=== PATIENT | female | born 2000 | race Caucasian/White ===

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

== ENCOUNTER 2022-01-10 11:36 | Observation (INO) | payer OTHER ==
[~2022-01-10] VITALS: Ht 175.3 cm; Wt 80.0 kg
[2022-01-10 12:11] VITALS: BP 126/88
[2022-01-10 12:30] VITALS: BP 115/83
[2022-01-10] MEDS ORDERED: HYDROCODONE/ACE1 T12 (12:59)
[2022-01-10 13:00] VITALS: BP 124/81
[2022-01-10] MEDS ORDERED: LACTULOSE10 GM/15 M (13:00)
[2022-01-10] MEDS ORDERED: VALIUM2 MG PO (13:01)
[2022-01-10 13:09] LABS: HEMATOCRIT 41.9 % (37.0-47.0); HEMOGLOBIN 13.3 g/dl (12.0-16.0); IMMATURE GRANULOCYTES 0.1 % (0.0-5.0); MEAN CORPUSCULAR HGB 31.3 pG CALC (26.0-32.0); MEAN CORPUSCULAR HGB CONC 31.7 g/dL CAL (32.0-36.0); NEUT# 5.47 thou/uL (2.00-7.15); RED BLOOD COUNT 4.25 mill/uL (4.20-5.60); RED CELL DISTRI WIDTH 14.1 % (11.5-15.5)
[2022-01-10 13:11] LABS: MEAN CELL VOLUME 98.6 fL CALC (80.0-100.0)
[2022-01-10 13:21] LABS: ALBUMIN 4.1 g/dL (3.2-5.0); ALKALINE PHOSPHATASE 124 u/l (38-126); ANION GAP 9 (6-22 (CALC)); BILIRUBIN, TOTAL 0.3 mg/dL (0.0-1.4); BUN 10 mg/dL (8-21); BUN/CREATININE RATIO 30 (12-20 (CALC)); CARBON DIOXIDE 32 mmol/l (22-30); CHLORIDE 102 mmol/l (95-108); CREATININE 0.3 mg/dL (0.5-1.0); GFR > 60 ML/MIN (>=60 (CALC)); GFR FOR AFR.AMER. > 60 ML/MIN (>=60 (CALC)); POTASSIUM 4.4 mmol/l (3.5-5.1); SGOT/AST 34 u/l (14-36); SODIUM 139 mmol/l (137-146); TOTAL PROTEIN 8.1 g/dL (6.3-8.2)
[2022-01-10 13:30] VITALS: BP 122/84
[2022-01-10 13:38] LABS: URINE BILIRUBIN - DIPSTICK NEGATIVE (NEGATIVE); URINE BLOOD DIPSTICK NEGATIVE (NEGATIVE); URINE COLOR YELLOW; URINE GLUCOSE - DIPSTICK NEGATIVE (NEGATIVE); URINE KETONE NEGATIVE (NEGATIVE); URINE LEUK ESTERASE LARGE (NEGATIVE); URINE NITRITE - DIPSTICK NEGATIVE (Negative); URINE PH 8.5 (4.5-8.0); URINE PROTEIN - DIPSTICK TRACE mg/dL (NEG-TRACE); URINE SPECIFIC GRAVITY 1.015; URINE UROBILINOGEN - DIPSTICK 0.2 E.U./dL (0.2)
[2022-01-10 13:42] LABS: URINE BACTERIA MANY hpf
[2022-01-10 14:00] VITALS: BP 124/82
[2022-01-10 20:09] VITALS: BP 119/69
[2022-01-11 04:40] VITALS: BP 126/64
[2022-01-11 18:56] VITALS: BP 116/72
[2022-01-12 04:08] VITALS: BP 99/55
[2022-01-12 04:09] VITALS: BP 95/48
[2022-01-12 07:17] VITALS: BP 110/78
[2022-01-12 14:27] VITALS: BP 124/80
[2022-01-12 18:57] VITALS: BP 126/85
[2022-01-13 03:40] VITALS: BP 101/56
[2022-01-13 05:44] LABS: HEMOGLOBIN 12.2 g/dl (12.0-16.0); MEAN CELL VOLUME 97.7 fL CALC (80.0-100.0); MEAN CORPUSCULAR HGB 31.4 pG CALC (26.0-32.0); MEAN CORPUSCULAR HGB CONC 32.1 g/dL CAL (32.0-36.0); RED BLOOD COUNT 3.89 mill/uL (4.20-5.60); RED CELL DISTRI WIDTH 13.5 % (11.5-15.5)
[2022-01-13 06:01] LABS: ANION GAP 13 (6-22 (CALC)); BUN 5 mg/dL (8-21); BUN/CREATININE RATIO 19 (12-20 (CALC)); CARBON DIOXIDE 22 mmol/l (22-30); CHLORIDE 106 mmol/l (95-108); CREATININE 0.3 mg/dL (0.5-1.0); GFR > 60 ML/MIN (>=60 (CALC)); GFR FOR AFR.AMER. > 60 ML/MIN (>=60 (CALC)); MAGNESIUM 1.5 mg/dL (1.6-2.3); POTASSIUM 4.1 mmol/l (3.5-5.1); SODIUM 137 mmol/l (137-146)
[2022-01-13 07:03] VITALS: BP 108/67
[2022-01-13 15:27] VITALS: BP 121/78
[2022-01-13 18:13] VITALS: BP 127/86
[2022-01-14 04:57] VITALS: BP 100/51
[2022-01-14 06:12] LABS: ANION GAP 12 (6-22 (CALC)); BUN < 2 mg/dL (8-21); CARBON DIOXIDE 23 mmol/l (22-30); CHLORIDE 106 mmol/l (95-108); CREATININE 0.3 mg/dL (0.5-1.0); GFR > 60 ML/MIN (>=60 (CALC)); GFR FOR AFR.AMER. > 60 ML/MIN (>=60 (CALC)); MAGNESIUM 1.6 mg/dL (1.6-2.3); POTASSIUM 3.6 mmol/l (3.5-5.1); SODIUM 138 mmol/l (137-146)
[2022-01-14 07:05] VITALS: BP 125/79
[2022-01-14 15:27] VITALS: BP 128/79
[2022-01-14 20:56] VITALS: BP 129/72
[2022-01-15 05:05] VITALS: BP 106/54
[2022-01-15 05:37] LABS: HEMATOCRIT 39.4 % (37.0-47.0); HEMOGLOBIN 12.9 g/dl (12.0-16.0); MEAN CELL VOLUME 96.1 fL CALC (80.0-100.0); MEAN CORPUSCULAR HGB 31.5 pG CALC (26.0-32.0); MEAN CORPUSCULAR HGB CONC 32.7 g/dL CAL (32.0-36.0); RED BLOOD COUNT 4.1 mill/uL (4.20-5.60); RED CELL DISTRI WIDTH 13.7 % (11.5-15.5)
[2022-01-15 06:02] LABS: ANION GAP 13 (6-22 (CALC)); BUN 3 mg/dL (8-21); BUN/CREATININE RATIO 8 (12-20 (CALC)); CARBON DIOXIDE 22 mmol/l (22-30); CHLORIDE 106 mmol/l (95-108); CREATININE 0.4 mg/dL (0.5-1.0); GFR > 60 ML/MIN (>=60 (CALC)); GFR FOR AFR.AMER. > 60 ML/MIN (>=60 (CALC)); MAGNESIUM 1.6 mg/dL (1.6-2.3); POTASSIUM 3.9 mmol/l (3.5-5.1); SODIUM 137 mmol/l (137-146)
[2022-01-15 08:08] VITALS: BP 123/72
[2022-01-15 11:36] VITALS: BP 114/74
[2022-01-15 15:09] VITALS: BP 113/62
[2022-01-15 19:16] VITALS: BP 113/66
[2022-01-16 04:08] VITALS: BP 102/46
[2022-01-16 05:44] LABS: HEMATOCRIT 40.5 % (37.0-47.0); HEMOGLOBIN 13.3 g/dl (12.0-16.0); MEAN CELL VOLUME 96.7 fL CALC (80.0-100.0); MEAN CORPUSCULAR HGB 31.7 pG CALC (26.0-32.0); MEAN CORPUSCULAR HGB CONC 32.8 g/dL CAL (32.0-36.0); RED BLOOD COUNT 4.19 mill/uL (4.20-5.60); RED CELL DISTRI WIDTH 13.9 % (11.5-15.5)
[2022-01-16 06:05] LABS: ANION GAP 14 (6-22 (CALC)); BUN 6 mg/dL (8-21); BUN/CREATININE RATIO 16 (12-20 (CALC)); CARBON DIOXIDE 23 mmol/l (22-30); CHLORIDE 108 mmol/l (95-108); CREATININE 0.4 mg/dL (0.5-1.0); GFR > 60 ML/MIN (>=60 (CALC)); GFR FOR AFR.AMER. > 60 ML/MIN (>=60 (CALC)); MAGNESIUM 1.7 mg/dL (1.6-2.3); POTASSIUM 3.6 mmol/l (3.5-5.1); SODIUM 141 mmol/l (137-146)
[2022-01-16 07:43] VITALS: BP 132/76
[2022-01-16 11:27] VITALS: BP 118/69
[2022-01-16] MEDS ORDERED: FLEET ENEMA RE (11:48)
== END 2022-01-16 13:00 | disposition home or self-care (01) ==
LOC: ED 11:36 → ED-I 16:20 → ED 17:13 → MS2 17:14
PROVIDERS: Family Medicine; Hospitalist; ADMIT Internal Medicine; ATTEND Internal Medicine
DX: K56.41 Fecal impaction (principal); N39.0 Urinary tract infection, site not specified; L89.899 Pressure ulcer of other site, unspecified stage; G93.1 Anoxic brain damage, not elsewhere classified; F84.0 Autistic disorder; G82.50 Quadriplegia, unspecified; N32.89 Other specified disorders of bladder; M21.372 Foot drop, left foot; M21.371 Foot drop, right foot; T75.1 Unspecified effects of drowning and nonfatal submersion; B96.1 Klebsiella pneumoniae [K. pneumoniae] as the cause of diseases classified elsewhere; Z93.1 Gastrostomy status; Z93.59 Other cystostomy status; Z74.01 Bed confinement status; Z20.822 Contact with and (suspected) exposure to COVID-19
CPT/HCPCS: G0378; J3475; Q9967

== ENCOUNTER 2022-01-24 21:51 | Emergency (ER) | payer OTHER ==
[~2022-01-24] VITALS: Ht 175.3 cm; Wt 88.5 kg
[~2022-01-24 21:51] MED LIST changes: +FLEET ENEMA RE; +HYDROCODONE/ACE1 T12; +LACTULOSE10 GM/15 M; +VALIUM2 MG PO
[2022-01-24] MEDS ORDERED: CITRATE OF MEGNESIA VT (23:46)
[2022-01-24] MEDS ORDERED: MIRALAX17 GM PO (23:46)
[2022-01-24 23:51] VITALS: BP 123/81
== END 2022-01-25 00:29 | disposition home or self-care (01) ==
LOC: ED 21:51
DX: K59.00 Constipation, unspecified (principal); F84.0 Autistic disorder; G93.1 Anoxic brain damage, not elsewhere classified; T75.1 Unspecified effects of drowning and nonfatal submersion; Z93.1 Gastrostomy status; Z74.01 Bed confinement status

== ENCOUNTER 2022-02-11 19:30 | Inpatient (IN) | payer OTHER ==
[2022-02-11] VITALS (12 sets, daily range): BP systolic 102–126; BP diastolic 52–86
[~2022-02-11] VITALS: Ht 175.3 cm; Wt 80.0 kg
[~2022-02-11 19:30] MED LIST changes: -BACLOFEN10 MG PO; +BACLOFEN10 MG VT; +CITRATE OF MEGNESIA VT; +DIAZEPAM5 MG VT; +MIRALAX17 GM PO; -VALIUM2 MG PO
--- NOTE | 2022-02-11 19:30 | NUR ---
RECEIVED APHASIC F FROM HOME VIA EMS WITH REPORTED SUDDEN ONSET FEVER THIS AFTERNOON.PT HX ANOXIC BRAIN INJURY,TOTAL CARE GIVEN BY PARENTS.PT HAS CONTRACTURES OF BOTH WRISTS,STIFF MAN SYNDROME,RETAINED TRAMMELL CATH DRAINS YELLOW URINE QS,SKIN IS WARM TO TOUCH.1 LOOSE CONGESTED GUZZLER BUILDER COUGH WITH TURNING IN BED.FACE IS FLUSHED RED.SOFT PADDED HEEL PROTECTORS BILAT LOWER EXT HEELS SHOW NO SIGNS OF BREAKDOWNSKIN OVER COCCYX IS PINK AND UNBROKEN PT IS ON O2/GUZZLER BUILDER 2L
[2022-02-11 19:45] LABS: URINE BILIRUBIN - DIPSTICK NEGATIVE (NEGATIVE); URINE BLOOD DIPSTICK TRACE-INTACT (NEGATIVE); URINE COLOR YELLOW; URINE GLUCOSE - DIPSTICK NEGATIVE (NEGATIVE); URINE KETONE NEGATIVE (NEGATIVE); URINE LEUK ESTERASE SMALL (NEGATIVE); URINE NITRITE - DIPSTICK NEGATIVE (Negative); URINE PROTEIN - DIPSTICK NEGATIVE (NEG-TRACE); URINE SPECIFIC GRAVITY 1.015; URINE UROBILINOGEN - DIPSTICK 0.2 E.U./dL (0.2)
[2022-02-11 19:54] LABS: URINE BACTERIA MODERATE hpf; URINE SQUAMOUS EPITHELIAL CELL FEW EPI/hpf (0-FEW)
[2022-02-11 20:16] LABS: HEMOGLOBIN 14.1 g/dl (12.0-16.0); IMMATURE GRANULOCYTES 0.2 % (0.0-5.0); MEAN CELL VOLUME 95.7 fL CALC (80.0-100.0); MEAN CORPUSCULAR HGB 30.7 pG CALC (26.0-32.0); NEUT# 11.69 thou/uL (2.00-7.15); RED BLOOD COUNT 4.6 mill/uL (4.20-5.60); RED CELL DISTRI WIDTH 12.9 % (11.5-15.5)
--- NOTE | 2022-02-11 20:25 | NUR ---
PARENTS REPORT THE PT'S ABD LOOKS DISTENDED FROM HER APPEARANCE AT HOME JPT TRANSPORT.PER DAD PT HAS HAD EPISODES OF CONSTIPATION LOOSE BMS.HAS BEEN RECEIVING STOOL SOFTENERS AND LAXATIVES DAILY
[2022-02-11 20:39] LABS: ALBUMIN 4.2 g/dL (3.2-5.0); ALKALINE PHOSPHATASE 139 u/l (38-126); ANION GAP 14 (6-22 (CALC)); BILIRUBIN, TOTAL 0.4 mg/dL (0.0-1.4); BUN 13 mg/dL (8-21); BUN/CREATININE RATIO 47 (12-20 (CALC)); CARBON DIOXIDE 22 mmol/l (22-30); CHLORIDE 102 mmol/l (95-108); CPK 47 u/l (30-165); CREATININE 0.3 mg/dL (0.5-1.0); GFR > 60 ML/MIN (>=60 (CALC)); GFR FOR AFR.AMER. > 60 ML/MIN (>=60 (CALC)); MAGNESIUM 1.5 mg/dL (1.6-2.3); POTASSIUM 4.2 mmol/l (3.5-5.1); SGOT/AST 30 u/l (14-36); SODIUM 134 mmol/l (137-146); TOTAL PROTEIN 8.4 g/dL (6.3-8.2)
--- NOTE | 2022-02-11 22:11 | NUR ---
PT TURNED R SIDE LYING WITH PILLOW PROPS AT BACK AND BUTT NO COUGH OR CONGESTION
--- NOTE | 2022-02-11 22:30 | NUR ---
REPORT RECEIVED FROM MARYBEL ROSS.
--- NOTE | 2022-02-11 22:45 | NUR ---
PHONE REPORT TO NURSE RIKA ON [facility]
--- NOTE | 2022-02-11 22:50 | NUR ---
PT TRANSPORTED TO OR VIA STRETCHER BY [facility] IN STABLE CONDITION
--- NOTE | 2022-02-11 23:00 | NUR ---
PT ARRIVED VIA STRETCHER ACCOMPANIED BY MARYBEL ROWE. PARENT WITH PT AT BEDSIDE. PT WITH ANOXIC BRAIN INJURY, BED BOUND AND NON VERBAL. O2 HIGH FLOW @ 5L. EVEN AND UNLABORED RESPIRATIONS; CLEAR LUNG SOUNDS UPON AUSCULTATION. G-TUBE IS CLEAN AND DRY. SUPRAPUBIC CATHETER DRAINING CLEAR YELLOW URINE. PT HAD EMESIS EPISODE 1X ON THE WAY TO [facility] FLOOR, AND A WATERY BOWEL MOVEMENT. PT SUCTIONED; NEW GOWN AND LINEN PROVIDED. SAFETY PRECAUTIONS IN PLACE.
--- NOTE | 2022-02-11 23:20 | NUR ---
CONTINUOUS PULSE OX ORDERED BY DR. AVERY AT THIS TIME. SAFETY PRECAUTIONS IN PLACE.
--- NOTE | 2022-02-12 00:30 | NUR ---
PT IN BED; O2 SAT @ 93%. NO DISTRESS OR PAIN NOTED. SAFETY PRECAUTIONS IN PLACE.
--- NOTE | 2022-02-12 02:02 | NUR ---
PT O2 SAT @ 89%; O2 HIGH FLOW VIA NASAL CANNULA @ 5L IN PLACED PER DR'S ORDERS. SAFETY PRECAUTIONS IN PLACE.
--- NOTE | 2022-02-12 02:46 | NUR ---
PT O2 SAT @ 87%; DAVID FROM RT NOTIFIED TO REASSES PT. PT NOW ON HIGH FLOW AT 8L. SAFETY PRECAUTIONS IN PLACE.
--- NOTE | 2022-02-12 03:00 | NUR ---
O2 HIGH FLOW @ 5L IN PLACE; O2 SAT @ 95%. SAFETY PRECAUTIONS IN PLACE.
[2022-02-12 05:04] VITALS: BP 107/51
--- NOTE | 2022-02-12 05:10 | NUR ---
PT SLEEPING; NO DISTRESS OR PAIN NOTED. VS OBTAINED AT THIS TIME; O2 SAT @ 99%. 02 NOW @ 3L VIA NASAL CANNULA PER RT TECH. SAFETY PRECAUTIONS IN PLACE.
[2022-02-12 05:18] LABS: HEMATOCRIT 39.7 % (37.0-47.0); HEMOGLOBIN 12.9 g/dl (12.0-16.0); IMMATURE GRANULOCYTES 0.2 % (0.0-5.0); MEAN CELL VOLUME 96.4 fL CALC (80.0-100.0); MEAN CORPUSCULAR HGB 31.3 pG CALC (26.0-32.0); MEAN CORPUSCULAR HGB CONC 32.5 g/dL CAL (32.0-36.0); NEUT# 7.57 thou/uL (2.00-7.15); RED BLOOD COUNT 4.12 mill/uL (4.20-5.60); RED CELL DISTRI WIDTH 12.9 % (11.5-15.5)
[2022-02-12 05:42] LABS: ANION GAP 11 (6-22 (CALC)); BUN 12 mg/dL (8-21); BUN/CREATININE RATIO 51 (12-20 (CALC)); CARBON DIOXIDE 22 mmol/l (22-30); CHLORIDE 105 mmol/l (95-108); CREATININE 0.2 mg/dL (0.5-1.0); GFR > 60 ML/MIN (>=60 (CALC)); GFR FOR AFR.AMER. > 60 ML/MIN (>=60 (CALC)); POTASSIUM 3.8 mmol/l (3.5-5.1); SODIUM 134 mmol/l (137-146)
[2022-02-12 05:43] LABS: MAGNESIUM 2.4 mg/dL (1.6-2.3)
[2022-02-12 06:35] VITALS: BP 97/47
[2022-02-12] MEDS ORDERED: LACTULOSE10 GM/15 M VT (07:14)
--- NOTE | 2022-02-12 07:30 | NUR ---
SHIFT CHANGE REPORT, PT AWAKE IN BED IN SUPINE POSITION, NON-VERBAL, NO VISIBLE SIGN DISCOMFORT, O2 @ 3L HIGH FRANKI IN PLACE VIA NC, IVF OF 0.9 NS INFUSING @ 125ML/HR TO SITE IN RIGHT NECK. TOTAL BEDBATH AND ORAL CARE GIVEN BY STAFF, REPOSITIONED, CALL SEGURA IN REACH AND BED IN LOWEST POSITION.
--- NOTE | 2022-02-12 07:36 | NUR ---
Patient is screened for physical medicine intervention. She is admitted with fecal impaction and fever. All other issues seem to be long standing. We can evaluate for contracture management if medical sees the need.
[2022-02-12 08:54] VITALS: BP 112/68
--- NOTE | 2022-02-12 12:00 | NUR ---
NO CHANGE IN CONDITION, REPOSITIONED.
[2022-02-12 14:00] VITALS: BP 111/63
--- NOTE | 2022-02-12 15:38 | NUR ---
REPOSITIONED FREQUENTLY, ALL NEEDS ANTICIPATED AND ADDRESSED.
[2022-02-12 19:04] VITALS: BP 114/71
--- NOTE | 2022-02-12 19:35 | NUR ---
REPORT RECEIVED FROM María Elena BRENNAN
--- NOTE | 2022-02-12 20:00 | NUR ---
PATIENT ASSESMENT COMPLETED AT THIS TIME. MOTHER AT BEDSIDE, PATIENT ANWARE OF SURROUNDINGS. REGULAR HEART SOUNDS, CURRENTLY ON TELE SR 90'S REGULAR BREATHING, NON LABORED, NON PRODUCTIVE COUGH ON 1 VIA NASAL CANNULA CLEAR LUNG SOUNDS THROUGHOUT. SOFT DISTENDED ABDOMEN WITH ACTIVE BOWEL SOUNDS, LAST BOWEL MOVEMENT 02/12 MOTHER. DANIELLA URINE DRAINING TO GRAVITY, NO OCCLUSIONS, 100 ML EMPTIED. SKIN IS INTACT THROUGHOUT. #20 IN RIGHT JUGULAR PATENT AND FLUSHED. PLAN OF CARE REVIEWED WITH MOTHER. MEDICATIONS REVIEWED WITH MOTHER FREQUENT ROUNDING BY STAFF AND Q2 TURNS.
--- NOTE | 2022-02-12 21:35 | NUR ---
MEDICATIONS ADMINSITERED PER EMAR. SEE EMAR.
--- NOTE | 2022-02-12 23:30 | NUR ---
ANTIBIOTIC HUNG AT THIS TIME
[2022-02-12 23:39] VITALS: BP 92/43
[2022-02-13 03:50] VITALS: BP 114/57
--- NOTE | 2022-02-13 04:15 | NUR ---
PATIENT CLEANED UP AND TURNED AT THIS TIME.
--- NOTE | 2022-02-13 04:30 | NUR ---
ATTEMPTED WEANING PT OFF 1L VIA NC, PT GRADUALL DESATS TO 90% 89% REPLACED CANNULA, PATIENT UP TO 94%
[2022-02-13 06:17] LABS: MEAN CELL VOLUME 97.1 fL CALC (80.0-100.0); MEAN CORPUSCULAR HGB 30.4 pG CALC (26.0-32.0); MEAN CORPUSCULAR HGB CONC 31.3 g/dL CAL (32.0-36.0); RED BLOOD COUNT 5.52 mill/uL (4.20-5.60); RED CELL DISTRI WIDTH 13.1 % (11.5-15.5)
[2022-02-13 06:25] LABS: HEMATOCRIT 53.6 % (37.0-47.0); HEMOGLOBIN 16.8 g/dl (12.0-16.0)
[2022-02-13 06:33] LABS: ANION GAP 15 (6-22 (CALC)); BUN 9 mg/dL (8-21); BUN/CREATININE RATIO 35 (12-20 (CALC)); CARBON DIOXIDE 22 mmol/l (22-30); CHLORIDE 107 mmol/l (95-108); CREATININE 0.3 mg/dL (0.5-1.0); GFR > 60 ML/MIN (>=60 (CALC)); GFR FOR AFR.AMER. > 60 ML/MIN (>=60 (CALC)); MAGNESIUM 1.9 mg/dL (1.6-2.3); POTASSIUM 4.2 mmol/l (3.5-5.1); SODIUM 139 mmol/l (137-146)
[2022-02-13 07:11] VITALS: BP 112/60
--- NOTE | 2022-02-13 08:00 | NUR ---
SHIFT CHANGE REPORT, PT RESTING IN SUPINE POSITION AND SLEEPING, NON-VERBAL, RIGID AND CONTRACTED O2@ 1L VIA NC HIGH FRANKI TUBING IN PLACE, CONTINUOUS PULSE OXIMETRY IN PLACE, REPOSITIONED IN BED, CALL SEGURA IN REACH AND BED LOCKED IN LOWEST POSITION.
--- NOTE | 2022-02-13 12:00 | NUR ---
RECEIVE REPORT FROM BASIA NO. PATIENT STABLE RESTING IN BED.CHANGE OF POSITION EVERY TWO HOURS IS DONE TO PREVENT ULCERS AND SKIN CARE. IV DRESSING CHANGED WITH STERILE CARE.
[2022-02-13 14:10] VITALS: BP 121/77
--- NOTE | 2022-02-13 16:17 | NUR ---
PRELIMINARY BLOOD CULTURE RESULTS CALLED TO . / VIALS GROWING GRAM (+) COCCI. NEW ORDER FOR VANCOMYCIN. FINAL RESULTS TO FOLLOW ON 02/14/22
--- NOTE | 2022-02-13 16:59 | NUR ---
S: TOM SHERMAN is a 21 F who presents with gram (+) cocci in 4/4 blood cultures. She has a history of possible aspiration pneumonia . All medications in patient's chart were reviewed. O: VS: BP <>, P<>, RR<>,T<> W <kg>, HT<cm>, Scr=<>,CrCl= <ml/min> A: Blood culture <is pending/show> which is sensitive to <>. Urine culture <is pending/show> which is sensitive to <>. P: Patient is on unasyn. Vancomycin ordered for pharmacy to dose. Start Vancomycin 1 gram IV Q8H. Vancomycin trough is drawn before the 4th dose on 02/14 at 0730. Vancomycin goal trough is between <15-20 mcg/ml>. Pharmacy will follow and or advise on antibiotics use as needed.
[2022-02-13 19:12] VITALS: BP 140/84
--- NOTE | 2022-02-13 19:55 | NUR ---
PT'S MOM WAS IN TO SEE HER, STATED THAT THE PT APPEARS COMFORTABLE AND THAT SHE IS "SNORING AWAY." I SPOKE WITH HER ABOUT HER FEEDINGS AND CONFIRMED THE ORDERS/INSTRUCTIONS PROVIDED BY DIETARY, SHE CONFIRMED FEED AT BEDSIDE AND 5 CANS PER DAY STARTING WITH THE 2000 FEED. DISCUSSED POSITIONING WITH PILLOWS AND NECK POSITIONING PREFERRED.
--- NOTE | 2022-02-13 22:20 | NUR ---
PT TEMPT 101.9 MEDICATED W/MOTRIN AND COOL COMPRESSESS APPLIED, ROOM TURNED TO COOL AND COVERS WERE REMOVED. HR SUSTAINED 130, O2 SAT 99% ON 7L NC. WILL CONTINUE TO MONITOR FOR RESPONSE.
--- NOTE | 2022-02-13 23:50 | NUR ---
PT TEMP 99.9 AT THIS TIME, COOL CLOTHS REMAIN AND ROOM COOLED. WILL CONTINUE TO MONITOR FOR FOR POSSIBLE NEED OF TYLENOL IF FEVER DOES NOT CONTINUE TO LOWER.
--- NOTE | 2022-02-14 00:33 | NUR ---
PT TEMP IS DOWN TO 99.1 AND HR IS RESPONDING AT 116. WILL CONTINUE TO MONITOR
[2022-02-14 05:15] VITALS: BP 92/44
--- NOTE | 2022-02-14 05:30 | NUR ---
PT CLEANED OF INCONTINENT PASTY JUAREZ STOOL. SHE WAS REPOSITIONED W/PILLOWS FOR OFF-LOADING. HEEL BOOTS ARE IN PLACE. PT FEED ADMINISTERED 1 CAN ORDERS PROVIDE. NO RESIDUAL, PLACEMENT COMFIRMED. HOB @45 DEGREES. PT AFEBRILE AND HR IS DOWN TO 89. NO S/O DISTRESS.
[2022-02-14 06:58] VITALS: BP 99/60
--- NOTE | 2022-02-14 07:00 | NUR ---
RECEIVE REPORT FROM BENNY NO.
[2022-02-14 08:00] VITALS: BP 99/60
--- NOTE | 2022-02-14 08:00 | NUR ---
PATIENT STABLE AT THIS TIME. DIET DONE ACCORDING PLAN. PATIENT TOLERATED WELL. CHANGE POSITION EVERY TWO HOURS DONE.
[2022-02-14 08:27] LABS: MEAN CELL VOLUME 97.9 fL CALC (80.0-100.0); MEAN CORPUSCULAR HGB 31.5 pG CALC (26.0-32.0); MEAN CORPUSCULAR HGB CONC 32.2 g/dL CAL (32.0-36.0); RED BLOOD COUNT 3.9 mill/uL (4.20-5.60); RED CELL DISTRI WIDTH 13.2 % (11.5-15.5)
[2022-02-14 08:37] LABS: HEMATOCRIT 38.2 % (37.0-47.0); HEMOGLOBIN 12.3 g/dl (12.0-16.0)
[2022-02-14 08:42] LABS: ANION GAP 11 (6-22 (CALC)); BUN 8 mg/dL (8-21); BUN/CREATININE RATIO 30 (12-20 (CALC)); CARBON DIOXIDE 23 mmol/l (22-30); CHLORIDE 109 mmol/l (95-108); CREATININE 0.3 mg/dL (0.5-1.0); GFR > 60 ML/MIN (>=60 (CALC)); GFR FOR AFR.AMER. > 60 ML/MIN (>=60 (CALC)); MAGNESIUM 1.8 mg/dL (1.6-2.3); POTASSIUM 4.4 mmol/l (3.5-5.1); SODIUM 138 mmol/l (137-146)
--- NOTE | 2022-02-14 09:24 | NUR ---
CALLED [facility] SPOKE TO DONAVAN REGARDING PLACEMENT OF AIR MATTRESS. WAS GIVEN CONFIRMATION NUMBER [id number].
[2022-02-14 10:38] VITALS: BP 120/71
--- NOTE | 2022-02-14 12:58 | NUR ---
PATIENT STABLE AT THIS TIME. RESTING IN BED.
[2022-02-14 15:43] VITALS: BP 133/82
[2022-02-14 19:22] VITALS: BP 143/96
--- NOTE | 2022-02-14 19:45 | NUR ---
PT'S FATHER AT BEDSIDE; FATHER UPSET ABOUT PT'S NOT GETTING PROPER CARE. FATHER REQUESTED TO TALK WITH BALANCE CLERK; NURSE BALANCE CLERK INFORMED. SAFETY PRECAUTIONS IN PLACE.
--- NOTE | 2022-02-14 20:30 | NUR ---
BED BATH GIVEN AT THIS TIME BY AIDES. PT ASSESMENT COMPLETED AT THIS TIME. PT BEDBOUND, NON VERBAL. REGULAR HEART SOUNDS. EVEN AND UNLABORED RESPIRATIONS; CLEAR LUNG SOUNDS. O2 @ 4L VIA NASAL CANNULA IN PLACE. CURRENTLY ON CONTINUOUS PULSE OXIMETER MONITORING. SOFT DISTENDED ABDOMEN; ACTIVE BOWEL SOUNDS. G-TUBE IN PLACE WITH DRESSING CDI. SUPRAPUBIC CATHETER; DANIELLA URINE DRAINING TO GRAVITY. IV SITE HEALTHY AND PATENT. BEDSORE ON RIGHT HEEL NOTICED; AQUACELL FOAM PLACED. SAFETY PRECAUTIONS IN PLACE.
--- NOTE | 2022-02-14 21:10 | NUR ---
PT FED AT THIS TIME; PT TOLERATED WELL. WOUND ON LEFT HALLUX CLEANED AND BANDAGE APPLIED. O2 SAT 95%. SAFETY PRECAUTIONS IN PLACE.
--- NOTE | 2022-02-14 22:30 | NUR ---
PATIENT WEARING 4L/NASAL CANNULA WITH SPO2 94%. BREATH SOUNDS SCATTERED RHONCHI. YANKEUR SUCTIONED WITH LOOSE COUGH THAT CLEARED AIRWAY.
--- NOTE | 2022-02-15 01:16 | NUR ---
NEW BAG OF IV FLUIDS HANGING. PT REPOSITIONED ORDERED. SAFETY PRECAUTIONS IN PLACE.
--- NOTE | 2022-02-15 04:00 | NUR ---
PT IN BED WITH EYES CLOSED. PT'S LIPS DRY; ADMINISTERED MOISTURE CREAM ON LIPS. FREQUENT ROUNDING BY STAFF AND Q2H TURNS. O2 SAT 94%. SAFETY PRECAUTIONS IN PLACE.
[2022-02-15 04:01] VITALS: BP 128/77
[2022-02-15 05:19] LABS: HEMOGLOBIN 10.7 g/dl (12.0-16.0); MEAN CELL VOLUME 96.7 fL CALC (80.0-100.0); MEAN CORPUSCULAR HGB 32.1 pG CALC (26.0-32.0); MEAN CORPUSCULAR HGB CONC 33.2 g/dL CAL (32.0-36.0); RED BLOOD COUNT 3.33 mill/uL (4.20-5.60); RED CELL DISTRI WIDTH 12.9 % (11.5-15.5)
[2022-02-15 05:25] LABS: HEMATOCRIT 32.2 % (37.0-47.0)
[2022-02-15 05:40] LABS: ANION GAP 7 (6-22 (CALC)); BUN 6 mg/dL (8-21); BUN/CREATININE RATIO 23 (12-20 (CALC)); CARBON DIOXIDE 27 mmol/l (22-30); CHLORIDE 108 mmol/l (95-108); CREATININE 0.3 mg/dL (0.5-1.0); GFR > 60 ML/MIN (>=60 (CALC)); GFR FOR AFR.AMER. > 60 ML/MIN (>=60 (CALC)); MAGNESIUM 1.8 mg/dL (1.6-2.3); POTASSIUM 4.1 mmol/l (3.5-5.1); SODIUM 137 mmol/l (137-146)
[2022-02-15 07:00] VITALS: BP 122/76
[2022-02-15 13:57] VITALS: BP 118/76
[2022-02-15 19:14] VITALS: BP 122/83
--- NOTE | 2022-02-15 21:02 | NUR ---
PT ASSESSMENT COMPLETED. PT WAS GIVEN LAST OF HER FEED FOR TONIGHT. ISOSOURCE 1.5CAL GIVEN THROUGH PEG TUBE WITH 450ML WATER FLUSH. PT TOLERATED FEED WELL, NO VOMITING OR COUGH. PT IS RESTING COMFORTABLY IN BED WITH TV ON. PT WAS REPOSITIONED AT 2100 INSTEAD OF 2030 TO ALLOW HER FOOD TO DIGEST AND TO AVOID MAKING THE PT THROW UP.
--- NOTE | 2022-02-15 21:59 | NUR ---
PT IS RESTING COMFORTABLY IN BED WITH TV ON. PT WAS TURNED AND CHANGED POSITION. NEXT TURN WILL BE AT 00:00.
--- NOTE | 2022-02-16 | NUR ---
PT IS AWAKE WITH TV ON. PT WAS TURNED AND REPOSITION. BED IS IN LOWEST POSITION. WILL CONTINUE HOURLY ROUNDING.
--- NOTE | 2022-02-16 02:00 | NUR ---
PT WAS REPOSITIONED AND TURNED. PT IS SLEEPING IN BED. BED IS LOWEST POSITION AND CALL LIGHT IS WITHIN REACH. WILL CONTINUE HOURLY ROUNDING.
--- NOTE | 2022-02-16 04:00 | NUR ---
PT IS RESTING COMFORTABLY. PT HAD BM AND WAS CLEANED AND CHANGED.
[2022-02-16 04:33] VITALS: BP 101/48
--- NOTE | 2022-02-16 05:00 | NUR ---
PT WAS REPOSITIONED AND IS NOW SLEEPING. WILL CONTINUE TO DO HOURLY ROUNDS.
[2022-02-16 05:46] LABS: HEMATOCRIT 31.8 % (37.0-47.0); HEMOGLOBIN 10.9 g/dl (12.0-16.0); MEAN CELL VOLUME 94.4 fL CALC (80.0-100.0); MEAN CORPUSCULAR HGB 32.3 pG CALC (26.0-32.0); MEAN CORPUSCULAR HGB CONC 34.3 g/dL CAL (32.0-36.0); RED BLOOD COUNT 3.37 mill/uL (4.20-5.60); RED CELL DISTRI WIDTH 12.9 % (11.5-15.5)
--- NOTE | 2022-02-16 05:50 | NUR ---
RECIEVED CALL FROM MONITORS THAT PT HR IS IN THE 180'S. WENT INTO ROOM TO ASSESS PT. PT IS SLEEPING WITH RAPID BREATHING BUT DOES NOT APPEAR TO BE IN DISTRESS.
[2022-02-16 06:04] LABS: ANION GAP 11 (6-22 (CALC)); BUN 5 mg/dL (8-21); BUN/CREATININE RATIO 19 (12-20 (CALC)); CARBON DIOXIDE 24 mmol/l (22-30); CHLORIDE 108 mmol/l (95-108); CREATININE 0.3 mg/dL (0.5-1.0); GFR > 60 ML/MIN (>=60 (CALC)); GFR FOR AFR.AMER. > 60 ML/MIN (>=60 (CALC)); MAGNESIUM 1.7 mg/dL (1.6-2.3); POTASSIUM 3.7 mmol/l (3.5-5.1); SODIUM 139 mmol/l (137-146)
[2022-02-16 07:19] VITALS: BP 138/84
--- NOTE | 2022-02-16 08:00 | NUR ---
GOT REPORT FROM HAND BINDERY ASSEMBLY WORKER NURSE. PATIENT ASSESSED, PATIENT IS SLEEPING, NO SXS OF DISTRESS. PATIENT HAD DARK BROWN/BLACK FLUID IN G TUBE. SHOWED SUTURE WINDER HAND, SHE ADVISED ME TO HOLD FEEDINGS FOR THE TIME BEING AND GET STAT CT. PATIENT FATHER INFORMED.
--- NOTE | 2022-02-16 09:04 | NUR ---
Patient is being cared for well by nursing. Skilled intervention is not indicated but we continue to check on her and assist with ROM and positioning. She is being prepped for procedure this AM
--- NOTE | 2022-02-16 12:00 | NUR ---
PAITENT IS AWAKE, DID BED BATH. NO sxs of DISTRESS. FATHER AT BEDSIDE. ADVISED TO CALL IF NEEDING ANYTHING.
--- NOTE | 2022-02-16 12:15 | NUR ---
PERFORMED WOUND CARE ON PATIENT'S RIGHT HEEL AND L GREAT TOE PER MD ORDERS. PATIENT TOLERATED WELL.
[2022-02-16 14:48] VITALS: BP 140/94
--- NOTE | 2022-02-16 16:45 | NUR ---
WENT INTO PATIENTS ROOM TO GIVE PATIENT MEDICATION, TURN PATIENT, AND GIVE TUBE FEED. PATIENT'S FATHER WAS NOT HAPPY THAT WE CAME IN AT 1645 WHEN ACCORDING TO PATIENT'S FATHER TURNING SHOULD HAVE BEEN 15 MINUTES SOONER. PATIENT'S FATHER BEGAN TO YELL AT ME AND REQUEST NURSING TIMING INSPECTOR. HE LEFT THE ROOM AND WENT TO NURSES STATION AND BEGAN YELLING AND VERBALLY ABUSING THE NURSING TIMING INSPECTOR AND OTHER STAFF THEN BEGAN TO THREATEN THE STAFF AND SECURITY WAS CALLED TO HELP. [facility] CAME AND ESCORTED THE PATIENT'S FATHER OUT OF THE HOSPITAL.
--- NOTE | 2022-02-16 19:00 | NUR ---
PT IS RESTING COMFORTABLY IN BED WITH TV ON. TRAMMELL BAG CHANGED DUE TO LEAKAGE.
[2022-02-16 19:07] VITALS: BP 146/95
--- NOTE | 2022-02-16 19:48 | NUR ---
PT ASSESSMENT COMPLETED AT THIS TIME. PATIENT WAS GIVEN HER FEED AND TOLERATED WELL. PT BELLY STILL DISTENDED. PT WAS TURNED AT THIS TIME AND PERIPAD WAS CHANGED. WILL CONTINUE HOURLY ROUNDS.
--- NOTE | 2022-02-16 21:00 | NUR ---
PT IS RESTING IN BED. PT WAS GIVEN HER MEDICATIONS AND TOLERATED WELL. WILL CONTIUE HOURLY ROUNDING.
--- NOTE | 2022-02-16 21:20 | NUR ---
RECEIVED A CALL FRO WANTING TO SPEAK TO THE NURSE WHO IS TAKING CARE OF THE PATIENT. DR. BUSH WANTED TO INFORM ME OF CHANGES. STATED THAT HE WANTED TO BEGIN WEANING PATIENT OFF OF O2. VERIFIED INSTRUCTIONS AND VERBALIZED UNDERSTANDING. PT O2 WAS LOWERED TO 2L NC. PT IS TOLERATING WELL AND O2 IS SUSTAINING AT 96%. DR'S INSTRUCTIONS WERE TO INCREASE IF O2 DROPS BELOW 94%.
--- NOTE | 2022-02-16 22:30 | NUR ---
PT IS RESTING IN BED. PT WAS TURNED AND REPOSITIONED. WILL CONTINUE HOURLY ROUNDING.
[2022-02-16 23:30] VITALS: BP 127/62
[2022-02-17] VITALS: BP 127/62
--- NOTE | 2022-02-17 00:30 | NUR ---
PT IS SLEEPING IN BED. PT HAD A LARGE BM. PT WAS GIVEN A BATH AND LINENS CHANGED. PT WAS TURNED AND REPOSITIONED. WILL CONTINUE HOURLY ROUNDING.
--- NOTE | 2022-02-17 03:28 | NUR ---
RECEIVED A CALL FROM IZZY FROM [facility] THAT PATIENT WILL BE GOING TO [facility]. TRANSPORT ARRIVED ABD REPORT WAS GIVEN AT BEDSIDE. PT'S THINGS WERE PACKED AND GIVEN TO TRANSPORT. PT LEFT FACILITY AT 03:38AM ON 02/17/22. CALLED [facility] AND SPOKE TO RECEIVING NURSE FIGUEROA. REPORT WAS GIVEN OVER THE PHONE AND INFORMED NURSE HENRY THAT WILL BE PHYSICIAN RECEIVING PHYSICIAN. NURSE FIGUEROA VERBALIZED UNDERSTANDING. DISCHARGE DISPOSITION FAXED TO REGISTRATION.
== END 2022-02-17 03:28 | DRG 871 ==
LOC: ED 19:30 → ED-I 19:44 → ED 21:58 → MS2 21:59
PROVIDERS: Family Medicine; ADMIT Internal Medicine; ATTEND Hospitalist
DX: A41.2 Sepsis due to unspecified staphylococcus (principal); J69.0 Pneumonitis due to inhalation of food and vomit; G82.50 Quadriplegia, unspecified; J96.01 Acute respiratory failure with hypoxia; G93.1 Anoxic brain damage, not elsewhere classified; F84.0 Autistic disorder; L89.610 Pressure ulcer of right heel, unstageable; L97.529 Non-pressure chronic ulcer of other part of left foot with unspecified severity; K56.41 Fecal impaction; T75.1 Unspecified effects of drowning and nonfatal submersion; Z74.01 Bed confinement status; Z93.1 Gastrostomy status; Z22.321 Carrier or suspected carrier of Methicillin susceptible Staphylococcus aureus; Z93.50 Unspecified cystostomy status; Z20.822 Contact with and (suspected) exposure to COVID-19
CPT/HCPCS: J1650; Q3014; Q9967; S0164

== ENCOUNTER 2022-02-22 16:30 | Inpatient (IN) | payer OTHER ==
[~2022-02-22] VITALS: Ht 175.3 cm; Wt 97.7 kg
[~2022-02-22 16:30] MED LIST changes: +LACTULOSE10 GM/15 M VT
[2022-02-22 19:51] VITALS: BP 146/83
[2022-02-23 03:35] VITALS: BP 125/78
[2022-02-23 05:06] LABS: BUN 9 mg/dL (8-21); BUN/CREATININE RATIO 8 (12-20 (CALC)); CARBON DIOXIDE 25 mmol/l (22-30); CHLORIDE 112 mmol/l (95-108); CREATININE 1.1 mg/dL (0.5-1.0); GFR FOR AFR.AMER. > 60 ML/MIN (>=60 (CALC)); GFR OTHER RACES > 60 ML/MIN (>=60 (CALC)); MAGNESIUM 1.9 mg/dL (1.6-2.3); POTASSIUM 3.6 mmol/l (3.5-5.1)
[2022-02-23 05:10] LABS: HEMATOCRIT 36.8 % (37.0-47.0); HEMOGLOBIN 11.6 g/dl (12.0-16.0); MEAN CELL VOLUME 99.7 fL CALC (80.0-100.0); MEAN CORPUSCULAR HGB 31.4 pG CALC (26.0-32.0); MEAN CORPUSCULAR HGB CONC 31.5 g/dL CAL (32.0-36.0); RED BLOOD COUNT 3.69 mill/uL (4.20-5.60); RED CELL DISTRI WIDTH 13.2 % (11.5-15.5)
[2022-02-23 05:17] LABS: ANION GAP 13 (6-22 (CALC)); SODIUM 146 mmol/l (137-146)
[2022-02-23 07:04] VITALS: BP 134/71
[2022-02-23 08:00] VITALS: BP 134/71
[2022-02-23 14:05] VITALS: BP 122/75
[2022-02-23 16:00] VITALS: BP 122/75
[2022-02-23 19:24] VITALS: BP 153/72
[2022-02-24 04:36] VITALS: BP 134/81
[2022-02-24 05:12] LABS: HEMOGLOBIN 10.8 g/dl (12.0-16.0); MEAN CELL VOLUME 99.4 fL CALC (80.0-100.0); MEAN CORPUSCULAR HGB 31.6 pG CALC (26.0-32.0); MEAN CORPUSCULAR HGB CONC 31.8 g/dL CAL (32.0-36.0); RED BLOOD COUNT 3.42 mill/uL (4.20-5.60); RED CELL DISTRI WIDTH 13.4 % (11.5-15.5)
[2022-02-24 05:29] LABS: ALKALINE PHOSPHATASE 78 u/l (38-126); ANION GAP 11 (6-22 (CALC)); BILIRUBIN, TOTAL 0.3 mg/dL (0.0-1.4); BUN 8 mg/dL (8-21); BUN/CREATININE RATIO 7 (12-20 (CALC)); CARBON DIOXIDE 26 mmol/l (22-30); CHLORIDE 113 mmol/l (95-108); CREATININE 1.1 mg/dL (0.5-1.0); GFR FOR AFR.AMER. > 60 ML/MIN (>=60 (CALC)); GFR OTHER RACES > 60 ML/MIN (>=60 (CALC)); MAGNESIUM 1.9 mg/dL (1.6-2.3); POTASSIUM 3.3 mmol/l (3.5-5.1); SGOT/AST 16 u/l (14-36); SODIUM 147 mmol/l (137-146)
[2022-02-24 05:31] LABS: ALBUMIN 2.8 g/dL (3.2-5.0); TOTAL PROTEIN 6.7 g/dL (6.3-8.2)
[2022-02-24 06:55] VITALS: BP 132/79
[2022-02-24 14:37] VITALS: BP 130/81
[2022-02-24 19:17] VITALS: BP 112/49
[2022-02-25 03:43] LABS: URINE BILIRUBIN - DIPSTICK NEGATIVE (NEGATIVE); URINE BLOOD DIPSTICK TRACE-INTACT (NEGATIVE); URINE COLOR YELLOW; URINE GLUCOSE - DIPSTICK NEGATIVE (NEGATIVE); URINE KETONE NEGATIVE (NEGATIVE); URINE LEUK ESTERASE TRACE (NEGATIVE); URINE PROTEIN - DIPSTICK NEGATIVE (NEG-TRACE); URINE UROBILINOGEN - DIPSTICK 0.2 E.U./dL (0.2)
[2022-02-25 03:46] LABS: URINE NITRITE - DIPSTICK NEGATIVE (Negative)
[2022-02-25 04:21] VITALS: BP 118/55
[2022-02-25 05:42] LABS: HEMATOCRIT 31.9 % (37.0-47.0); HEMOGLOBIN 10.2 g/dl (12.0-16.0); IMMATURE GRANULOCYTES 0.1 % (0.0-5.0); MEAN CELL VOLUME 99.1 fL CALC (80.0-100.0); MEAN CORPUSCULAR HGB 31.7 pG CALC (26.0-32.0); NEUT# 11.72 thou/uL (2.00-7.15); RED BLOOD COUNT 3.22 mill/uL (4.20-5.60); RED CELL DISTRI WIDTH 13.3 % (11.5-15.5)
[2022-02-25 06:01] LABS: ALBUMIN 2.7 g/dL (3.2-5.0); ALKALINE PHOSPHATASE 69 u/l (38-126); ANION GAP 12 (6-22 (CALC)); BILIRUBIN, TOTAL 0.2 mg/dL (0.0-1.4); BUN 10 mg/dL (8-21); BUN/CREATININE RATIO 9 (12-20 (CALC)); CARBON DIOXIDE 27 mmol/l (22-30); CHLORIDE 110 mmol/l (95-108); CREATININE 1.1 mg/dL (0.5-1.0); GFR FOR AFR.AMER. > 60 ML/MIN (>=60 (CALC)); GFR OTHER RACES > 60 ML/MIN (>=60 (CALC)); POTASSIUM 3.2 mmol/l (3.5-5.1); SGOT/AST 18 u/l (14-36); SODIUM 146 mmol/l (137-146); TOTAL PROTEIN 6.5 g/dL (6.3-8.2)
[2022-02-25 06:48] VITALS: BP 131/67
[2022-02-25 15:34] VITALS: BP 145/88
[2022-02-25 19:06] VITALS: BP 119/53
[2022-02-26] VITALS (7 sets, daily range): BP systolic 122–143; BP diastolic 76–85
[2022-02-26 05:36] LABS: HEMATOCRIT 29.6 % (37.0-47.0); HEMOGLOBIN 9.3 g/dl (12.0-16.0); MEAN CORPUSCULAR HGB 31.4 pG CALC (26.0-32.0); MEAN CORPUSCULAR HGB CONC 31.4 g/dL CAL (32.0-36.0); NEUT# 9.15 thou/uL (2.00-7.15); RED BLOOD COUNT 2.96 mill/uL (4.20-5.60); RED CELL DISTRI WIDTH 13.5 % (11.5-15.5)
[2022-02-26 05:58] LABS: ALBUMIN 2.5 g/dL (3.2-5.0); ALKALINE PHOSPHATASE 58 u/l (38-126); ANION GAP 11 (6-22 (CALC)); BILIRUBIN, TOTAL 0.2 mg/dL (0.0-1.4); BUN 11 mg/dL (8-21); BUN/CREATININE RATIO 11 (12-20 (CALC)); CARBON DIOXIDE 27 mmol/l (22-30); CHLORIDE 111 mmol/l (95-108); GFR FOR AFR.AMER. > 60 ML/MIN (>=60 (CALC)); GFR OTHER RACES > 60 ML/MIN (>=60 (CALC)); MAGNESIUM 2.1 mg/dL (1.6-2.3); POTASSIUM 3.6 mmol/l (3.5-5.1); SGOT/AST 17 u/l (14-36); SODIUM 146 mmol/l (137-146); TOTAL PROTEIN 6.2 g/dL (6.3-8.2)
[2022-02-27 04:17] VITALS: BP 133/89
[2022-02-27 05:17] LABS: HEMATOCRIT 30.2 % (37.0-47.0); HEMOGLOBIN 9.3 g/dl (12.0-16.0); MEAN CELL VOLUME 100.3 fL CALC (80.0-100.0); MEAN CORPUSCULAR HGB 30.9 pG CALC (26.0-32.0); MEAN CORPUSCULAR HGB CONC 30.8 g/dL CAL (32.0-36.0); RED BLOOD COUNT 3.01 mill/uL (4.20-5.60); RED CELL DISTRI WIDTH 13.2 % (11.5-15.5)
[2022-02-27 05:36] LABS: ANION GAP 12 (6-22 (CALC)); BUN 11 mg/dL (8-21); BUN/CREATININE RATIO 12 (12-20 (CALC)); CARBON DIOXIDE 26 mmol/l (22-30); CHLORIDE 109 mmol/l (95-108); CREATININE 0.9 mg/dL (0.5-1.0); GFR FOR AFR.AMER. > 60 ML/MIN (>=60 (CALC)); GFR OTHER RACES > 60 ML/MIN (>=60 (CALC)); POTASSIUM 3.5 mmol/l (3.5-5.1); SODIUM 144 mmol/l (137-146)
[2022-02-27 06:59] VITALS: BP 119/78
[2022-02-27] MEDS ORDERED: CEFEPIME2 GM IV (11:50)
[2022-02-27] MEDS ORDERED: VANCOMYCIN HYDRO1 GM IV (11:50)
[2022-02-27] MEDS ORDERED: CIPROFLOXACN500 MG VT (13:33)
[2022-02-27 14:55] VITALS: BP 128/79
[2022-02-27 19:00] VITALS: BP 151/84
[2022-02-28 04:03] VITALS: BP 125/86
[2022-02-28 06:58] VITALS: BP 131/84
[2022-02-28 08:00] VITALS: BP 131/84
[2022-02-28 16:34] VITALS: BP 131/84
[2022-03-01 04:27] VITALS: BP 114/73
[2022-03-01 06:43] VITALS: BP 133/81
[2022-03-01 08:00] VITALS: BP 133/81
[2022-03-01 11:59] LABS: HEMATOCRIT 33.7 % (37.0-47.0); HEMOGLOBIN 10.5 g/dl (12.0-16.0); IMMATURE GRANULOCYTES 0.1 % (0.0-5.0); MEAN CELL VOLUME 97.4 fL CALC (80.0-100.0); MEAN CORPUSCULAR HGB 30.3 pG CALC (26.0-32.0); MEAN CORPUSCULAR HGB CONC 31.2 g/dL CAL (32.0-36.0); NEUT# 6.97 thou/uL (2.00-7.15); RED BLOOD COUNT 3.46 mill/uL (4.20-5.60)
[2022-03-01 14:07] VITALS: BP 127/79
[2022-03-01 16:19] VITALS: BP 127/79
[2022-03-01 19:24] VITALS: BP 127/85
[2022-03-02 04:09] VITALS: BP 147/52
[2022-03-02 05:34] LABS: HEMATOCRIT 29.4 % (37.0-47.0); HEMOGLOBIN 9.4 g/dl (12.0-16.0); MEAN CELL VOLUME 98.3 fL CALC (80.0-100.0); MEAN CORPUSCULAR HGB 31.4 pG CALC (26.0-32.0); RED BLOOD COUNT 2.99 mill/uL (4.20-5.60); RED CELL DISTRI WIDTH 13.3 % (11.5-15.5)
[2022-03-02 05:42] LABS: ANION GAP 12 (6-22 (CALC)); BUN 10 mg/dL (8-21); BUN/CREATININE RATIO 12 (12-20 (CALC)); CARBON DIOXIDE 27 mmol/l (22-30); CHLORIDE 106 mmol/l (95-108); CREATININE 0.9 mg/dL (0.5-1.0); GFR FOR AFR.AMER. > 60 ML/MIN (>=60 (CALC)); GFR OTHER RACES > 60 ML/MIN (>=60 (CALC)); MAGNESIUM 1.8 mg/dL (1.6-2.3); POTASSIUM 3.6 mmol/l (3.5-5.1); SODIUM 142 mmol/l (137-146)
[2022-03-02 07:01] VITALS: BP 118/69
[2022-03-02 08:00] VITALS: BP 118/69
[2022-03-02 16:00] VITALS: BP 120/62
[2022-03-02 18:59] VITALS: BP 151/80
[2022-03-03] VITALS (7 sets, daily range): BP systolic 116–141; BP diastolic 61–92
[2022-03-03 05:15] LABS: HEMOGLOBIN 9.1 g/dl (12.0-16.0); MEAN CELL VOLUME 98.6 fL CALC (80.0-100.0); MEAN CORPUSCULAR HGB CONC 31.4 g/dL CAL (32.0-36.0); RED BLOOD COUNT 2.94 mill/uL (4.20-5.60); RED CELL DISTRI WIDTH 13.3 % (11.5-15.5)
[2022-03-03 05:17] LABS: ANION GAP 8 (6-22 (CALC)); BUN 9 mg/dL (8-21); BUN/CREATININE RATIO 14 (12-20 (CALC)); CARBON DIOXIDE 23 mmol/l (22-30); CHLORIDE 110 mmol/l (95-108); CREATININE 0.6 mg/dL (0.5-1.0); GFR FOR AFR.AMER. > 60 ML/MIN (>=60 (CALC)); GFR OTHER RACES > 60 ML/MIN (>=60 (CALC)); MAGNESIUM 1.5 mg/dL (1.6-2.3); POTASSIUM 3.1 mmol/l (3.5-5.1); SODIUM 139 mmol/l (137-146)
[2022-03-04 03:58] VITALS: BP 113/78
[2022-03-04 05:28] LABS: HEMATOCRIT 31.5 % (37.0-47.0); MEAN CELL VOLUME 97.5 fL CALC (80.0-100.0); MEAN CORPUSCULAR HGB CONC 31.7 g/dL CAL (32.0-36.0); RED BLOOD COUNT 3.23 mill/uL (4.20-5.60); RED CELL DISTRI WIDTH 13.4 % (11.5-15.5)
[2022-03-04 05:45] LABS: BUN 9 mg/dL (8-21); BUN/CREATININE RATIO 14 (12-20 (CALC)); CARBON DIOXIDE 27 mmol/l (22-30); CHLORIDE 103 mmol/l (95-108); CREATININE 0.7 mg/dL (0.5-1.0); GFR FOR AFR.AMER. > 60 ML/MIN (>=60 (CALC)); GFR OTHER RACES > 60 ML/MIN (>=60 (CALC)); SODIUM 138 mmol/l (137-146)
[2022-03-04 05:57] LABS: ANION GAP 13 (6-22 (CALC)); MAGNESIUM 2.4 mg/dL (1.6-2.3); POTASSIUM 5.2 mmol/l (3.5-5.1)
[2022-03-04 06:48] VITALS: BP 124/79
[2022-03-04 14:02] VITALS: BP 137/78
[2022-03-04 19:05] VITALS: BP 132/85
[2022-03-05 03:56] VITALS: BP 122/81
[2022-03-05 06:02] LABS: HEMATOCRIT 32.6 % (37.0-47.0); HEMOGLOBIN 10.4 g/dl (12.0-16.0); MEAN CELL VOLUME 97.3 fL CALC (80.0-100.0); MEAN CORPUSCULAR HGB CONC 31.9 g/dL CAL (32.0-36.0); RED BLOOD COUNT 3.35 mill/uL (4.20-5.60); RED CELL DISTRI WIDTH 13.4 % (11.5-15.5)
[2022-03-05 06:13] LABS: ANION GAP 14 (6-22 (CALC)); BUN 10 mg/dL (8-21); BUN/CREATININE RATIO 14 (12-20 (CALC)); CARBON DIOXIDE 27 mmol/l (22-30); CHLORIDE 101 mmol/l (95-108); CREATININE 0.7 mg/dL (0.5-1.0); GFR FOR AFR.AMER. > 60 ML/MIN (>=60 (CALC)); GFR OTHER RACES > 60 ML/MIN (>=60 (CALC)); MAGNESIUM 1.9 mg/dL (1.6-2.3); POTASSIUM 4.7 mmol/l (3.5-5.1); SODIUM 137 mmol/l (137-146)
[2022-03-05 07:15] VITALS: BP 110/69
[2022-03-05 15:37] VITALS: BP 137/84
[2022-03-05 19:41] VITALS: BP 137/92
[2022-03-06 05:09] VITALS: BP 145/86
[2022-03-06 05:58] LABS: HEMATOCRIT 32.7 % (37.0-47.0); HEMOGLOBIN 10.4 g/dl (12.0-16.0); MEAN CELL VOLUME 98.2 fL CALC (80.0-100.0); MEAN CORPUSCULAR HGB 31.2 pG CALC (26.0-32.0); MEAN CORPUSCULAR HGB CONC 31.8 g/dL CAL (32.0-36.0); RED BLOOD COUNT 3.33 mill/uL (4.20-5.60); RED CELL DISTRI WIDTH 13.7 % (11.5-15.5)
[2022-03-06 06:31] LABS: ANION GAP 17 (6-22 (CALC)); BUN 13 mg/dL (8-21); BUN/CREATININE RATIO 19 (12-20 (CALC)); CARBON DIOXIDE 23 mmol/l (22-30); CHLORIDE 101 mmol/l (95-108); CREATININE 0.7 mg/dL (0.5-1.0); GFR FOR AFR.AMER. > 60 ML/MIN (>=60 (CALC)); GFR OTHER RACES > 60 ML/MIN (>=60 (CALC)); MAGNESIUM 1.9 mg/dL (1.6-2.3); POTASSIUM 4.4 mmol/l (3.5-5.1); SODIUM 137 mmol/l (137-146)
[2022-03-06 07:30] VITALS: BP 127/79
[2022-03-06 14:50] VITALS: BP 122/77
[2022-03-06 20:01] VITALS: BP 117/83
[2022-03-07] VITALS (7 sets, daily range): BP systolic 109–143; BP diastolic 66–94
[2022-03-08] VITALS (7 sets, daily range): BP systolic 101–130; BP diastolic 65–86
[2022-03-08 05:25] LABS: HEMATOCRIT 31.7 % (37.0-47.0); HEMOGLOBIN 9.9 g/dl (12.0-16.0); MEAN CELL VOLUME 97.2 fL CALC (80.0-100.0); MEAN CORPUSCULAR HGB 30.4 pG CALC (26.0-32.0); MEAN CORPUSCULAR HGB CONC 31.2 g/dL CAL (32.0-36.0); RED BLOOD COUNT 3.26 mill/uL (4.20-5.60); RED CELL DISTRI WIDTH 13.3 % (11.5-15.5)
[2022-03-08 05:49] LABS: ALBUMIN 3.4 g/dL (3.2-5.0); ALKALINE PHOSPHATASE 74 u/l (38-126); BILIRUBIN, TOTAL 0.2 mg/dL (0.0-1.4); BUN 14 mg/dL (8-21); BUN/CREATININE RATIO 19 (12-20 (CALC)); CHLORIDE 101 mmol/l (95-108); CREATININE 0.7 mg/dL (0.5-1.0); GFR FOR AFR.AMER. > 60 ML/MIN (>=60 (CALC)); GFR OTHER RACES > 60 ML/MIN (>=60 (CALC)); POTASSIUM 4.7 mmol/l (3.5-5.1); SGOT/AST 27 u/l (14-36); SODIUM 137 mmol/l (137-146)
[2022-03-08 05:54] LABS: ANION GAP 13 (6-22 (CALC)); CARBON DIOXIDE 28 mmol/l (22-30); TOTAL PROTEIN 7.7 g/dL (6.3-8.2)
[2022-03-09 04:10] VITALS: BP 109/75
[2022-03-09 06:42] VITALS: BP 114/74
[2022-03-09 14:47] VITALS: BP 148/79
[2022-03-09 19:28] VITALS: BP 139/85
[2022-03-10 04:21] VITALS: BP 131/81
[2022-03-10 06:01] LABS: HEMATOCRIT 32.8 % (37.0-47.0); HEMOGLOBIN 10.5 g/dl (12.0-16.0); MEAN CELL VOLUME 97.6 fL CALC (80.0-100.0); MEAN CORPUSCULAR HGB 31.3 pG CALC (26.0-32.0); RED BLOOD COUNT 3.36 mill/uL (4.20-5.60)
[2022-03-10 06:19] LABS: ANION GAP 14 (6-22 (CALC)); BUN 15 mg/dL (8-21); BUN/CREATININE RATIO 20 (12-20 (CALC)); CARBON DIOXIDE 28 mmol/l (22-30); CHLORIDE 101 mmol/l (95-108); CREATININE 0.7 mg/dL (0.5-1.0); GFR FOR AFR.AMER. > 60 ML/MIN (>=60 (CALC)); GFR OTHER RACES > 60 ML/MIN (>=60 (CALC)); POTASSIUM 4.2 mmol/l (3.5-5.1); SODIUM 139 mmol/l (137-146)
[2022-03-10 07:06] VITALS: BP 129/80
[2022-03-10 15:55] VITALS: BP 125/80
[2022-03-10 19:33] VITALS: BP 149/92
[2022-03-11 03:16] VITALS: BP 133/84
[2022-03-11 10:07] VITALS: BP 119/81
[2022-03-11 16:30] VITALS: BP 131/89
[2022-03-11 19:21] VITALS: BP 130/81
[2022-03-12 04:04] VITALS: BP 120/77
[2022-03-12 04:35] LABS: HEMATOCRIT 32.1 % (37.0-47.0); HEMOGLOBIN 10.3 g/dl (12.0-16.0); MEAN CORPUSCULAR HGB 30.5 pG CALC (26.0-32.0); MEAN CORPUSCULAR HGB CONC 32.1 g/dL CAL (32.0-36.0); RED BLOOD COUNT 3.38 mill/uL (4.20-5.60)
[2022-03-12 04:49] LABS: ANION GAP 15 (6-22 (CALC)); BUN 14 mg/dL (8-21); BUN/CREATININE RATIO 20 (12-20 (CALC)); CARBON DIOXIDE 26 mmol/l (22-30); CHLORIDE 102 mmol/l (95-108); CREATININE 0.7 mg/dL (0.5-1.0); GFR FOR AFR.AMER. > 60 ML/MIN (>=60 (CALC)); GFR OTHER RACES > 60 ML/MIN (>=60 (CALC)); MAGNESIUM 1.7 mg/dL (1.6-2.3); POTASSIUM 4.2 mmol/l (3.5-5.1); SODIUM 139 mmol/l (137-146)
[2022-03-12 07:46] VITALS: BP 138/87
[2022-03-12 15:18] VITALS: BP 128/90
[2022-03-12 19:26] VITALS: BP 140/94
[2022-03-13 04:32] VITALS: BP 124/80
[2022-03-13 07:11] VITALS: BP 128/89
[2022-03-13 15:24] VITALS: BP 120/86
[2022-03-13 19:00] VITALS: BP 121/82
[2022-03-13 19:09] VITALS: BP 121/82
[2022-03-14 03:57] VITALS: BP 147/90
[2022-03-14 05:48] LABS: MEAN CELL VOLUME 93.8 fL CALC (80.0-100.0); MEAN CORPUSCULAR HGB 30.1 pG CALC (26.0-32.0); MEAN CORPUSCULAR HGB CONC 32.1 g/dL CAL (32.0-36.0); RED BLOOD COUNT 5.98 mill/uL (4.20-5.60); RED CELL DISTRI WIDTH 13.3 % (11.5-15.5)
[2022-03-14 06:01] LABS: ANION GAP 12 (6-22 (CALC)); BUN 12 mg/dL (8-21); BUN/CREATININE RATIO 23 (12-20 (CALC)); CARBON DIOXIDE 26 mmol/l (22-30); CHLORIDE 103 mmol/l (95-108); CREATININE 0.5 mg/dL (0.5-1.0); GFR FOR AFR.AMER. > 60 ML/MIN (>=60 (CALC)); GFR OTHER RACES > 60 ML/MIN (>=60 (CALC)); MAGNESIUM 1.8 mg/dL (1.6-2.3); POTASSIUM 4.3 mmol/l (3.5-5.1); SODIUM 137 mmol/l (137-146)
[2022-03-14 06:03] LABS: HEMATOCRIT 56.1 % (37.0-47.0)
[2022-03-14 07:14] VITALS: BP 124/78
[2022-03-14 10:30] LABS: HEMOGLOBIN 10.4 g/dl (12.0-16.0); MEAN CELL VOLUME 97.1 fL CALC (80.0-100.0); MEAN CORPUSCULAR HGB 30.6 pG CALC (26.0-32.0); MEAN CORPUSCULAR HGB CONC 31.5 g/dL CAL (32.0-36.0); RED BLOOD COUNT 3.4 mill/uL (4.20-5.60); RED CELL DISTRI WIDTH 13.3 % (11.5-15.5)
[2022-03-14 15:32] VITALS: BP 127/82
[2022-03-14 19:20] VITALS: BP 149/92
[2022-03-15] VITALS (7 sets, daily range): BP systolic 123–130; BP diastolic 71–87
[2022-03-15 09:58] LABS: HEMATOCRIT 31.8 % (37.0-47.0); HEMOGLOBIN 10.2 g/dl (12.0-16.0); MEAN CELL VOLUME 96.4 fL CALC (80.0-100.0); MEAN CORPUSCULAR HGB 30.9 pG CALC (26.0-32.0); MEAN CORPUSCULAR HGB CONC 32.1 g/dL CAL (32.0-36.0); RED BLOOD COUNT 3.3 mill/uL (4.20-5.60); RED CELL DISTRI WIDTH 13.3 % (11.5-15.5)
[2022-03-15 10:02] LABS: ANION GAP 14 (6-22 (CALC)); BUN 12 mg/dL (8-21); BUN/CREATININE RATIO 21 (12-20 (CALC)); CARBON DIOXIDE 27 mmol/l (22-30); CHLORIDE 102 mmol/l (95-108); CREATININE 0.6 mg/dL (0.5-1.0); GFR FOR AFR.AMER. > 60 ML/MIN (>=60 (CALC)); GFR OTHER RACES > 60 ML/MIN (>=60 (CALC)); MAGNESIUM 1.7 mg/dL (1.6-2.3); POTASSIUM 4.3 mmol/l (3.5-5.1); SODIUM 140 mmol/l (137-146)
[2022-03-15] MEDS ORDERED: VANCOMYCIN HYDRO1 GM IV (13:55)
[2022-03-16 04:00] VITALS: BP 110/81
[2022-03-16 04:04] VITALS: BP 110/81
[2022-03-16 05:19] LABS: HEMATOCRIT 31.2 % (37.0-47.0); HEMOGLOBIN 10.2 g/dl (12.0-16.0); MEAN CELL VOLUME 94.3 fL CALC (80.0-100.0); MEAN CORPUSCULAR HGB 30.8 pG CALC (26.0-32.0); MEAN CORPUSCULAR HGB CONC 32.7 g/dL CAL (32.0-36.0); RED BLOOD COUNT 3.31 mill/uL (4.20-5.60); RED CELL DISTRI WIDTH 13.2 % (11.5-15.5)
[2022-03-16 05:39] LABS: ANION GAP 14 (6-22 (CALC)); BUN 12 mg/dL (8-21); BUN/CREATININE RATIO 21 (12-20 (CALC)); CARBON DIOXIDE 27 mmol/l (22-30); CHLORIDE 102 mmol/l (95-108); CREATININE 0.6 mg/dL (0.5-1.0); GFR FOR AFR.AMER. > 60 ML/MIN (>=60 (CALC)); GFR OTHER RACES > 60 ML/MIN (>=60 (CALC)); MAGNESIUM 1.6 mg/dL (1.6-2.3); POTASSIUM 4.1 mmol/l (3.5-5.1); SODIUM 138 mmol/l (137-146)
[2022-03-16 07:24] VITALS: BP 110/71
== END 2022-03-16 14:40 | disposition home or self-care (01) | DRG 288 ==
LOC: MS2 16:30
PROVIDERS: Hospitalist; ADMIT Internal Medicine; ATTEND Internal Medicine
PROC: 0DH63UZ Insertion of Feeding Device into Stomach, Percutaneous Approach (ICD-10-PCS; principal; 2022-02-23)
DX: I33.0 Acute and subacute infective endocarditis (principal); J69.0 Pneumonitis due to inhalation of food and vomit; G82.50 Quadriplegia, unspecified; F84.0 Autistic disorder; G93.1 Anoxic brain damage, not elsewhere classified; B37.49 Other urogenital candidiasis; R78.81 Bacteremia; K21.9 Gastro-esophageal reflux disease without esophagitis; L89.610 Pressure ulcer of right heel, unstageable; K59.09 Other constipation; N32.89 Other specified disorders of bladder; N76.0 Acute vaginitis; R25.2 Cramp and spasm; S14.109S Unspecified injury at unspecified level of cervical spinal cord, sequela; B95.7 Other staphylococcus as the cause of diseases classified elsewhere; Z93.50 Unspecified cystostomy status; Z93.1 Gastrostomy status; Z74.01 Bed confinement status; Z99.3 Dependence on wheelchair
CPT/HCPCS: J0692; J1650; J3370; J3475; Q3014; Q9967

== ENCOUNTER 2022-08-01 18:03 | Inpatient (IN) | payer OTHER ==
[~2022-08-01] VITALS: Ht 175.3 cm; Wt 57.0 kg
[2022-08-01] VITALS (12 sets, daily range): BP systolic 129–146; BP diastolic 79–100
[~2022-08-01 18:03] MED LIST changes: +CEFEPIME2 GM IV; +CIPROFLOXACN500 MG VT; +VANCOMYCIN HYDRO1 GM IV
[2022-08-01 18:45] LABS: IMMATURE GRANULOCYTES 0.1 % (0.0-5.0); MEAN CELL VOLUME 94.3 fL CALC (80.0-100.0); MEAN CORPUSCULAR HGB 30.7 pG CALC (26.0-32.0); MEAN CORPUSCULAR HGB CONC 32.6 g/dL CAL (32.0-36.0); NEUT# 7.46 thou/uL (2.00-7.15); RED BLOOD COUNT 4.36 mill/uL (4.20-5.60); RED CELL DISTRI WIDTH 13.5 % (11.5-15.5)
[2022-08-01 18:52] LABS: HEMATOCRIT 41.1 % (37.0-47.0); HEMOGLOBIN 13.4 g/dl (12.0-16.0)
[2022-08-01 19:02] LABS: ANION GAP 14 (6-22 (CALC)); BUN 14 mg/dL (8-21); BUN/CREATININE RATIO 39 (12-20 (CALC)); CARBON DIOXIDE 23 mmol/l (22-30); CHLORIDE 104 mmol/l (95-108); CREATININE 0.4 mg/dL (0.5-1.0); GFR FOR AFR.AMER. > 60 ML/MIN (>=60 (CALC)); GFR OTHER RACES > 60 ML/MIN (>=60 (CALC)); POTASSIUM 4.1 mmol/l (3.5-5.1); SGOT/AST 40 u/l (14-36); SODIUM 137 mmol/l (137-146); TOTAL PROTEIN 8.4 g/dL (6.3-8.2)
[2022-08-01 19:03] LABS: ALBUMIN 4.3 g/dL (3.2-5.0); ALKALINE PHOSPHATASE 143 u/l (38-126); BILIRUBIN, TOTAL 0.3 mg/dL (0.0-1.4)
[2022-08-01 19:47] LABS: URINE BILIRUBIN - DIPSTICK NEGATIVE (NEGATIVE); URINE BLOOD DIPSTICK SMALL (NEGATIVE); URINE COLOR YELLOW; URINE GLUCOSE - DIPSTICK NEGATIVE (NEGATIVE); URINE KETONE NEGATIVE (NEGATIVE); URINE PROTEIN - DIPSTICK TRACE mg/dL (NEG-TRACE); URINE SPECIFIC GRAVITY 1.025; URINE UROBILINOGEN - DIPSTICK 0.2 E.U./dL (0.2)
[2022-08-01 19:49] LABS: URINE LEUK ESTERASE LARGE (NEGATIVE); URINE NITRITE - DIPSTICK NEGATIVE (Negative)
[2022-08-01 19:53] LABS: URINE AMORPH SEDIMENT MANY hpf (NONE-FEW); URINE SQUAMOUS EPITHELIAL CELL FEW EPI/hpf (0-FEW); URINE WBC >100 WBC/hpf (0-5)
[2022-08-02] VITALS (7 sets, daily range): BP systolic 105–147; BP diastolic 51–97
[2022-08-03 04:29] VITALS: BP 102/62
[2022-08-03 06:33] VITALS: BP 103/57
[2022-08-03 08:09] LABS: HEMATOCRIT 38.4 % (37.0-47.0); HEMOGLOBIN 12.5 g/dl (12.0-16.0); MEAN CORPUSCULAR HGB 31.3 pG CALC (26.0-32.0); MEAN CORPUSCULAR HGB CONC 32.6 g/dL CAL (32.0-36.0); RED CELL DISTRI WIDTH 13.6 % (11.5-15.5)
[2022-08-03 08:37] LABS: ALBUMIN 3.6 g/dL (3.2-5.0); ALKALINE PHOSPHATASE 130 u/l (38-126); ANION GAP 13 (6-22 (CALC)); BILIRUBIN, TOTAL 0.4 mg/dL (0.0-1.4); BUN 10 mg/dL (8-21); BUN/CREATININE RATIO 29 (12-20 (CALC)); CARBON DIOXIDE 20 mmol/l (22-30); CHLORIDE 110 mmol/l (95-108); CREATININE 0.3 mg/dL (0.5-1.0); GFR FOR AFR.AMER. > 60 ML/MIN (>=60 (CALC)); GFR OTHER RACES > 60 ML/MIN (>=60 (CALC)); MAGNESIUM 1.8 mg/dL (1.6-2.3); POTASSIUM 4.6 mmol/l (3.5-5.1); SGOT/AST 32 u/l (14-36); SODIUM 139 mmol/l (137-146); TOTAL PROTEIN 7.1 g/dL (6.3-8.2)
[2022-08-03 19:27] VITALS: BP 134/85
[2022-08-04 04:13] VITALS: BP 98/56
[2022-08-04 06:21] VITALS: BP 101/56
[2022-08-04 06:48] VITALS: BP 101/56
[2022-08-04 14:24] VITALS: BP 121/80
[2022-08-04 18:47] VITALS: BP 112/62
[2022-08-05 03:57] VITALS: BP 109/47
[2022-08-05 05:17] VITALS: BP 118/77
[2022-08-05 05:38] LABS: HEMATOCRIT 41.4 % (37.0-47.0); HEMOGLOBIN 13.2 g/dl (12.0-16.0); IMMATURE GRANULOCYTES 0.2 % (0.0-5.0); MEAN CELL VOLUME 96.7 fL CALC (80.0-100.0); MEAN CORPUSCULAR HGB 30.8 pG CALC (26.0-32.0); MEAN CORPUSCULAR HGB CONC 31.9 g/dL CAL (32.0-36.0); NEUT# 3.97 thou/uL (2.00-7.15); RED BLOOD COUNT 4.28 mill/uL (4.20-5.60); RED CELL DISTRI WIDTH 13.8 % (11.5-15.5)
[2022-08-05 06:10] LABS: ANION GAP 13 (6-22 (CALC)); BUN 7 mg/dL (8-21); BUN/CREATININE RATIO 24 (12-20 (CALC)); CARBON DIOXIDE 23 mmol/l (22-30); CHLORIDE 108 mmol/l (95-108); CREATININE 0.3 mg/dL (0.5-1.0); GFR FOR AFR.AMER. > 60 ML/MIN (>=60 (CALC)); GFR OTHER RACES > 60 ML/MIN (>=60 (CALC)); MAGNESIUM 1.8 mg/dL (1.6-2.3); POTASSIUM 4.6 mmol/l (3.5-5.1); SODIUM 139 mmol/l (137-146)
[2022-08-05 06:19] VITALS: BP 118/77
[2022-08-05 13:38] VITALS: BP 123/65
[2022-08-05 15:28] VITALS: BP 123/65
[2022-08-05 18:02] VITALS: BP 147/87
[2022-08-06 03:50] VITALS: BP 125/81
[2022-08-06 05:09] LABS: HEMATOCRIT 39.4 % (37.0-47.0); HEMOGLOBIN 13.2 g/dl (12.0-16.0); MEAN CELL VOLUME 93.6 fL CALC (80.0-100.0); MEAN CORPUSCULAR HGB 31.4 pG CALC (26.0-32.0); MEAN CORPUSCULAR HGB CONC 33.5 g/dL CAL (32.0-36.0); NEUT# 5.59 thou/uL (2.00-7.15); RED BLOOD COUNT 4.21 mill/uL (4.20-5.60); RED CELL DISTRI WIDTH 13.6 % (11.5-15.5)
[2022-08-06 05:37] LABS: ANION GAP 14 (6-22 (CALC)); BUN 8 mg/dL (8-21); BUN/CREATININE RATIO 26 (12-20 (CALC)); CARBON DIOXIDE 22 mmol/l (22-30); CHLORIDE 106 mmol/l (95-108); CREATININE 0.3 mg/dL (0.5-1.0); GFR FOR AFR.AMER. > 60 ML/MIN (>=60 (CALC)); GFR OTHER RACES > 60 ML/MIN (>=60 (CALC)); MAGNESIUM 1.8 mg/dL (1.6-2.3); POTASSIUM 4.3 mmol/l (3.5-5.1); SODIUM 138 mmol/l (137-146)
[2022-08-06 06:10] VITALS: BP 94/55
[2022-08-06 10:15] VITALS: BP 94/52
[2022-08-06 15:20] VITALS: BP 119/70
[2022-08-06 18:40] VITALS: BP 132/63
[2022-08-07 04:14] VITALS: BP 110/72
[2022-08-07 06:12] VITALS: BP 110/70
[2022-08-07] MEDS ORDERED: AUGMENTIN400 MG/5 M PEG (09:49)
[2022-08-07 15:20] VITALS: BP 142/85
[2022-08-07 18:20] VITALS: BP 114/73
[2022-08-07 19:00] VITALS: BP 142/85
[2022-08-08 04:00] VITALS: BP 127/77
[2022-08-08 05:06] VITALS: BP 103/60
[2022-08-08 05:48] LABS: HEMATOCRIT 35.9 % (37.0-47.0); HEMOGLOBIN 11.8 g/dl (12.0-16.0); MEAN CORPUSCULAR HGB 31.2 pG CALC (26.0-32.0); MEAN CORPUSCULAR HGB CONC 32.9 g/dL CAL (32.0-36.0); RED BLOOD COUNT 3.78 mill/uL (4.20-5.60); RED CELL DISTRI WIDTH 13.9 % (11.5-15.5)
[2022-08-08 06:03] LABS: ANION GAP 12 (6-22 (CALC)); BUN 6 mg/dL (8-21); BUN/CREATININE RATIO 21 (12-20 (CALC)); CARBON DIOXIDE 22 mmol/l (22-30); CHLORIDE 108 mmol/l (95-108); CREATININE 0.3 mg/dL (0.5-1.0); GFR FOR AFR.AMER. > 60 ML/MIN (>=60 (CALC)); GFR OTHER RACES > 60 ML/MIN (>=60 (CALC)); MAGNESIUM 1.8 mg/dL (1.6-2.3); POTASSIUM 3.5 mmol/l (3.5-5.1); SODIUM 138 mmol/l (137-146)
[2022-08-08 15:22] VITALS: BP 120/71
[2022-08-08 18:16] VITALS: BP 126/80
[2022-08-08 23:10] VITALS: BP 114/77
[2022-08-09] VITALS (10 sets, daily range): BP systolic 108–148; BP diastolic 62–104
[2022-08-10 03:59] VITALS: BP 142/82
[2022-08-10 05:38] LABS: HEMATOCRIT 38.2 % (37.0-47.0); HEMOGLOBIN 12.6 g/dl (12.0-16.0); IMMATURE GRANULOCYTES 0.1 % (0.0-5.0); MEAN CELL VOLUME 94.8 fL CALC (80.0-100.0); MEAN CORPUSCULAR HGB 31.3 pG CALC (26.0-32.0); NEUT# 10.57 thou/uL (2.00-7.15); RED BLOOD COUNT 4.03 mill/uL (4.20-5.60); RED CELL DISTRI WIDTH 13.9 % (11.5-15.5)
[2022-08-10 06:02] LABS: ALBUMIN 3.4 g/dL (3.2-5.0); ALKALINE PHOSPHATASE 92 u/l (38-126); ANION GAP 17 (6-22 (CALC)); BILIRUBIN, TOTAL 0.4 mg/dL (0.0-1.4); BUN < 2 mg/dL (8-21); CHLORIDE 109 mmol/l (95-108); CREATININE 0.3 mg/dL (0.5-1.0); GFR FOR AFR.AMER. > 60 ML/MIN (>=60 (CALC)); GFR OTHER RACES > 60 ML/MIN (>=60 (CALC)); POTASSIUM 3.8 mmol/l (3.5-5.1); SGOT/AST 27 u/l (14-36); SODIUM 137 mmol/l (137-146); TOTAL PROTEIN 6.9 g/dL (6.3-8.2)
[2022-08-10 06:06] LABS: CARBON DIOXIDE 15 mmol/l (22-30)
[2022-08-10 06:30] VITALS: BP 127/75
[2022-08-10 14:00] VITALS: BP 127/68
[2022-08-10 18:00] VITALS: BP 134/66
[2022-08-10 20:00] VITALS: BP 125/75
[2022-08-11] VITALS (20 sets, daily range): BP systolic 126–162; BP diastolic 60–98
[2022-08-11 14:04] LABS: HEMATOCRIT 37.1 % (37.0-47.0); HEMOGLOBIN 12.5 g/dl (12.0-16.0); IMMATURE GRANULOCYTES 0.1 % (0.0-5.0); MEAN CELL VOLUME 93.9 fL CALC (80.0-100.0); MEAN CORPUSCULAR HGB 31.6 pG CALC (26.0-32.0); MEAN CORPUSCULAR HGB CONC 33.7 g/dL CAL (32.0-36.0); NEUT# 12.35 thou/uL (2.00-7.15); RED BLOOD COUNT 3.95 mill/uL (4.20-5.60); RED CELL DISTRI WIDTH 14.4 % (11.5-15.5)
[2022-08-11 14:14] LABS: ANION GAP 17 (6-22 (CALC)); CARBON DIOXIDE 15 mmol/l (22-30); CHLORIDE 108 mmol/l (95-108); CREATININE 0.3 mg/dL (0.5-1.0); GFR FOR AFR.AMER. > 60 ML/MIN (>=60 (CALC)); GFR OTHER RACES > 60 ML/MIN (>=60 (CALC)); POTASSIUM 3.7 mmol/l (3.5-5.1); SODIUM 137 mmol/l (137-146)
[2022-08-11 14:24] LABS: BUN 2 mg/dL (8-21); BUN/CREATININE RATIO 7 (12-20 (CALC))
[2022-08-11 18:16] LABS: URINE BLOOD DIPSTICK NEGATIVE (NEGATIVE); URINE CLARITY SL CLOUDY; URINE COLOR YELLOW; URINE GLUCOSE - DIPSTICK NEGATIVE (NEGATIVE); URINE KETONE >=80 mg/dL (NEGATIVE); URINE LEUK ESTERASE SMALL (Negative); URINE NITRITE - DIPSTICK NEGATIVE (Negative); URINE PROTEIN - DIPSTICK NEGATIVE (NEG-TRACE); URINE SPECIFIC GRAVITY 1.025; URINE UROBILINOGEN - DIPSTICK 0.2 E.U./dL (0.2)
[2022-08-11 18:29] LABS: URINE BILIRUBIN - DIPSTICK SMALL (NEGATIVE); URINE SQUAMOUS EPITHELIAL CELL FEW EPI/hpf (0-FEW)
[2022-08-11 18:30] LABS: URINE CALCIUM OXALATE CRYSTALS FEW lpf; URINE YEAST MANY hpf
[2022-08-11 19:45] LABS: BUN < 2 mg/dL (8-21); CHLORIDE 111 mmol/l (95-108); CREATININE 0.3 mg/dL (0.5-1.0); GFR FOR AFR.AMER. > 60 ML/MIN (>=60 (CALC)); GFR OTHER RACES > 60 ML/MIN (>=60 (CALC)); POTASSIUM 3.3 mmol/l (3.5-5.1); SODIUM 136 mmol/l (137-146)
[2022-08-11 19:46] LABS: ANION GAP 9 (6-22 (CALC)); CARBON DIOXIDE 19 mmol/l (22-30)
[2022-08-12] VITALS (23 sets, daily range): BP systolic 111–157; BP diastolic 50–106
[2022-08-12 05:41] LABS: ANION GAP 13 (6-22 (CALC)); BUN < 2 mg/dL (8-21); CARBON DIOXIDE 19 mmol/l (22-30); CHLORIDE 107 mmol/l (95-108); CREATININE 0.3 mg/dL (0.5-1.0); GFR FOR AFR.AMER. > 60 ML/MIN (>=60 (CALC)); GFR OTHER RACES > 60 ML/MIN (>=60 (CALC)); POTASSIUM 3.2 mmol/l (3.5-5.1); SODIUM 136 mmol/l (137-146)
[2022-08-12 05:49] LABS: HEMATOCRIT 34.3 % (37.0-47.0); HEMOGLOBIN 11.6 g/dl (12.0-16.0); IMMATURE GRANULOCYTES 0.1 % (0.0-5.0); MEAN CELL VOLUME 94.2 fL CALC (80.0-100.0); MEAN CORPUSCULAR HGB 31.9 pG CALC (26.0-32.0); MEAN CORPUSCULAR HGB CONC 33.8 g/dL CAL (32.0-36.0); RED BLOOD COUNT 3.64 mill/uL (4.20-5.60); RED CELL DISTRI WIDTH 14.4 % (11.5-15.5)
[2022-08-13] VITALS (38 sets, daily range): BP systolic 96–146; BP diastolic 41–82
[2022-08-13 05:29] LABS: HEMATOCRIT 32.9 % (37.0-47.0); IMMATURE GRANULOCYTES 0.1 % (0.0-5.0); MEAN CELL VOLUME 94.8 fL CALC (80.0-100.0); MEAN CORPUSCULAR HGB 31.7 pG CALC (26.0-32.0); MEAN CORPUSCULAR HGB CONC 33.4 g/dL CAL (32.0-36.0); NEUT# 9.3 thou/uL (2.00-7.15); RED BLOOD COUNT 3.47 mill/uL (4.20-5.60); RED CELL DISTRI WIDTH 14.5 % (11.5-15.5)
[2022-08-13 05:45] LABS: ALBUMIN 2.9 g/dL (3.2-5.0); ALKALINE PHOSPHATASE 89 u/l (38-126); ANION GAP 13 (6-22 (CALC)); BILIRUBIN, TOTAL 0.5 mg/dL (0.0-1.4); BUN 2 mg/dL (8-21); BUN/CREATININE RATIO 7 (12-20 (CALC)); CARBON DIOXIDE 25 mmol/l (22-30); CHLORIDE 109 mmol/l (95-108); CREATININE 0.3 mg/dL (0.5-1.0); GFR FOR AFR.AMER. > 60 ML/MIN (>=60 (CALC)); GFR OTHER RACES > 60 ML/MIN (>=60 (CALC)); POTASSIUM 2.9 mmol/l (3.5-5.1); SGOT/AST 21 u/l (14-36); SODIUM 144 mmol/l (137-146)
[2022-08-14] VITALS (48 sets, daily range): BP systolic 103–126; BP diastolic 52–81
[2022-08-14 05:39] LABS: HEMATOCRIT 27.7 % (37.0-47.0); HEMOGLOBIN 9.2 g/dl (12.0-16.0); MEAN CELL VOLUME 95.2 fL CALC (80.0-100.0); MEAN CORPUSCULAR HGB 31.6 pG CALC (26.0-32.0); MEAN CORPUSCULAR HGB CONC 33.2 g/dL CAL (32.0-36.0); RED BLOOD COUNT 2.91 mill/uL (4.20-5.60); RED CELL DISTRI WIDTH 14.6 % (11.5-15.5)
[2022-08-14 05:55] LABS: ALBUMIN 2.4 g/dL (3.2-5.0); ALKALINE PHOSPHATASE 81 u/l (38-126); ANION GAP 8 (6-22 (CALC)); BILIRUBIN, TOTAL 0.4 mg/dL (0.0-1.4); BUN < 2 mg/dL (8-21); CARBON DIOXIDE 26 mmol/l (22-30); CHLORIDE 110 mmol/l (95-108); CREATININE 0.3 mg/dL (0.5-1.0); GFR FOR AFR.AMER. > 60 ML/MIN (>=60 (CALC)); GFR OTHER RACES > 60 ML/MIN (>=60 (CALC)); MAGNESIUM 1.7 mg/dL (1.6-2.3); POTASSIUM 2.9 mmol/l (3.5-5.1); SGOT/AST 19 u/l (14-36); SODIUM 141 mmol/l (137-146); TOTAL PROTEIN 5.3 g/dL (6.3-8.2)
[2022-08-15] VITALS (39 sets, daily range): BP systolic 103–131; BP diastolic 54–84
[2022-08-15 05:49] LABS: HEMOGLOBIN 9.2 g/dl (12.0-16.0); MEAN CELL VOLUME 94.3 fL CALC (80.0-100.0); MEAN CORPUSCULAR HGB CONC 32.9 g/dL CAL (32.0-36.0); RED BLOOD COUNT 2.97 mill/uL (4.20-5.60); RED CELL DISTRI WIDTH 14.6 % (11.5-15.5)
[2022-08-15 06:00] LABS: ALBUMIN 2.5 g/dL (3.2-5.0); ALKALINE PHOSPHATASE 85 u/l (38-126); BUN < 2 mg/dL (8-21); CARBON DIOXIDE 25 mmol/l (22-30); CHLORIDE 110 mmol/l (95-108); CREATININE 0.3 mg/dL (0.5-1.0); GFR FOR AFR.AMER. > 60 ML/MIN (>=60 (CALC)); GFR OTHER RACES > 60 ML/MIN (>=60 (CALC)); MAGNESIUM 1.7 mg/dL (1.6-2.3); SGOT/AST 19 u/l (14-36); SODIUM 139 mmol/l (137-146); TOTAL PROTEIN 5.5 g/dL (6.3-8.2)
[2022-08-15 06:05] LABS: ANION GAP 8 (6-22 (CALC)); BILIRUBIN, TOTAL 0.2 mg/dL (0.0-1.4); POTASSIUM 3.7 mmol/l (3.5-5.1)
[2022-08-16 04:19] VITALS: BP 116/79
[2022-08-16 05:28] LABS: HEMATOCRIT 33.8 % (37.0-47.0); MEAN CELL VOLUME 93.9 fL CALC (80.0-100.0); MEAN CORPUSCULAR HGB 31.4 pG CALC (26.0-32.0); MEAN CORPUSCULAR HGB CONC 33.4 g/dL CAL (32.0-36.0); RED BLOOD COUNT 3.6 mill/uL (4.20-5.60); RED CELL DISTRI WIDTH 14.3 % (11.5-15.5)
[2022-08-16 05:42] LABS: HEMOGLOBIN 11.3 g/dl (12.0-16.0)
[2022-08-16 05:43] LABS: ANION GAP 9 (6-22 (CALC)); BUN 2 mg/dL (8-21); BUN/CREATININE RATIO 7 (12-20 (CALC)); CARBON DIOXIDE 26 mmol/l (22-30); CHLORIDE 106 mmol/l (95-108); CREATININE 0.3 mg/dL (0.5-1.0); GFR FOR AFR.AMER. > 60 ML/MIN (>=60 (CALC)); GFR OTHER RACES > 60 ML/MIN (>=60 (CALC)); MAGNESIUM 1.8 mg/dL (1.6-2.3); POTASSIUM 4.3 mmol/l (3.5-5.1); SODIUM 136 mmol/l (137-146)
[2022-08-16 07:00] VITALS: BP 104/64
[2022-08-16 10:16] VITALS: BP 104/60
[2022-08-16 14:25] VITALS: BP 129/69
[2022-08-16 18:53] VITALS: BP 118/65
[2022-08-17] VITALS (7 sets, daily range): BP systolic 99–142; BP diastolic 56–81
[2022-08-17 08:02] LABS: HEMATOCRIT 38.6 % (37.0-47.0); HEMOGLOBIN 12.7 g/dl (12.0-16.0); MEAN CELL VOLUME 94.1 fL CALC (80.0-100.0); MEAN CORPUSCULAR HGB CONC 32.9 g/dL CAL (32.0-36.0); RED BLOOD COUNT 4.1 mill/uL (4.20-5.60); RED CELL DISTRI WIDTH 14.5 % (11.5-15.5)
[2022-08-17 08:18] LABS: ANION GAP 15 (6-22 (CALC)); BUN 4 mg/dL (8-21); BUN/CREATININE RATIO 10 (12-20 (CALC)); CARBON DIOXIDE 24 mmol/l (22-30); CHLORIDE 103 mmol/l (95-108); CREATININE 0.4 mg/dL (0.5-1.0); GFR FOR AFR.AMER. > 60 ML/MIN (>=60 (CALC)); GFR OTHER RACES > 60 ML/MIN (>=60 (CALC)); POTASSIUM 4.6 mmol/l (3.5-5.1); SODIUM 137 mmol/l (137-146)
[2022-08-18] VITALS (7 sets, daily range): BP systolic 111–171; BP diastolic 69–89
[2022-08-18 05:11] LABS: HEMATOCRIT 35.1 % (37.0-47.0); HEMOGLOBIN 11.5 g/dl (12.0-16.0); MEAN CELL VOLUME 94.6 fL CALC (80.0-100.0); MEAN CORPUSCULAR HGB CONC 32.8 g/dL CAL (32.0-36.0); RED BLOOD COUNT 3.71 mill/uL (4.20-5.60); RED CELL DISTRI WIDTH 14.5 % (11.5-15.5)
[2022-08-18 05:31] LABS: ALKALINE PHOSPHATASE 101 u/l (38-126); ANION GAP 14 (6-22 (CALC)); BILIRUBIN, TOTAL 0.2 mg/dL (0.0-1.4); BUN 4 mg/dL (8-21); BUN/CREATININE RATIO 10 (12-20 (CALC)); CARBON DIOXIDE 24 mmol/l (22-30); CHLORIDE 104 mmol/l (95-108); CREATININE 0.4 mg/dL (0.5-1.0); GFR FOR AFR.AMER. > 60 ML/MIN (>=60 (CALC)); GFR OTHER RACES > 60 ML/MIN (>=60 (CALC)); MAGNESIUM 1.8 mg/dL (1.6-2.3); POTASSIUM 4.1 mmol/l (3.5-5.1); SGOT/AST 27 u/l (14-36); SODIUM 138 mmol/l (137-146)
[2022-08-18 05:32] LABS: ALBUMIN 3.5 g/dL (3.2-5.0); TOTAL PROTEIN 7.6 g/dL (6.3-8.2)
[2022-08-19] VITALS (8 sets, daily range): BP systolic 125–158; BP diastolic 58–86
[2022-08-20] VITALS (9 sets, daily range): BP systolic 114–137; BP diastolic 69–84
[2022-08-20 05:12] LABS: HEMATOCRIT 32.6 % (37.0-47.0); HEMOGLOBIN 10.6 g/dl (12.0-16.0); MEAN CELL VOLUME 95.3 fL CALC (80.0-100.0); MEAN CORPUSCULAR HGB CONC 32.5 g/dL CAL (32.0-36.0); RED BLOOD COUNT 3.42 mill/uL (4.20-5.60); RED CELL DISTRI WIDTH 14.7 % (11.5-15.5)
[2022-08-20 05:22] LABS: ALBUMIN 3.5 g/dL (3.2-5.0); ALKALINE PHOSPHATASE 90 u/l (38-126); ANION GAP 13 (6-22 (CALC)); BUN 6 mg/dL (8-21); BUN/CREATININE RATIO 14 (12-20 (CALC)); CARBON DIOXIDE 24 mmol/l (22-30); CHLORIDE 105 mmol/l (95-108); CREATININE 0.4 mg/dL (0.5-1.0); GFR FOR AFR.AMER. > 60 ML/MIN (>=60 (CALC)); GFR OTHER RACES > 60 ML/MIN (>=60 (CALC)); MAGNESIUM 1.7 mg/dL (1.6-2.3); POTASSIUM 4.3 mmol/l (3.5-5.1); SGOT/AST 24 u/l (14-36); SODIUM 137 mmol/l (137-146); TOTAL PROTEIN 7.4 g/dL (6.3-8.2)
[2022-08-21] VITALS (8 sets, daily range): BP systolic 99–139; BP diastolic 57–84
[2022-08-21 05:44] LABS: ALBUMIN 3.8 g/dL (3.2-5.0); BUN 7 mg/dL (8-21); CARBON DIOXIDE 26 mmol/l (22-30); CHLORIDE 102 mmol/l (95-108); CREATININE 0.4 mg/dL (0.5-1.0); GFR FOR AFR.AMER. > 60 ML/MIN (>=60 (CALC)); GFR OTHER RACES > 60 ML/MIN (>=60 (CALC)); MAGNESIUM 1.9 mg/dL (1.6-2.3); POTASSIUM 4.5 mmol/l (3.5-5.1); SODIUM 137 mmol/l (137-146)
[2022-08-22] VITALS (7 sets, daily range): BP systolic 100–126; BP diastolic 54–78
[2022-08-22 05:52] LABS: ALBUMIN 3.5 g/dL (3.2-5.0); BUN 8 mg/dL (8-21); CARBON DIOXIDE 26 mmol/l (22-30); CHLORIDE 101 mmol/l (95-108); CREATININE 0.4 mg/dL (0.5-1.0); GFR FOR AFR.AMER. > 60 ML/MIN (>=60 (CALC)); GFR OTHER RACES > 60 ML/MIN (>=60 (CALC)); MAGNESIUM 1.7 mg/dL (1.6-2.3); POTASSIUM 4.1 mmol/l (3.5-5.1); SODIUM 135 mmol/l (137-146)
[2022-08-23] VITALS (8 sets, daily range): BP systolic 102–156; BP diastolic 49–81
[2022-08-23 06:12] LABS: ALBUMIN 3.7 g/dL (3.2-5.0); BUN 11 mg/dL (8-21); CARBON DIOXIDE 25 mmol/l (22-30); CHLORIDE 102 mmol/l (95-108); CREATININE 0.4 mg/dL (0.5-1.0); GFR FOR AFR.AMER. > 60 ML/MIN (>=60 (CALC)); GFR OTHER RACES > 60 ML/MIN (>=60 (CALC)); POTASSIUM 3.9 mmol/l (3.5-5.1); SODIUM 135 mmol/l (137-146)
[2022-08-24] VITALS (7 sets, daily range): BP systolic 107–145; BP diastolic 55–86
[2022-08-25 00:16] VITALS: BP 121/72
[2022-08-25 04:02] VITALS: BP 112/60
[2022-08-25 05:34] LABS: BUN 15 mg/dL (8-21); CARBON DIOXIDE 25 mmol/l (22-30); CHLORIDE 104 mmol/l (95-108); CREATININE 0.4 mg/dL (0.5-1.0); GFR FOR AFR.AMER. > 60 ML/MIN (>=60 (CALC)); GFR OTHER RACES > 60 ML/MIN (>=60 (CALC)); POTASSIUM 4.2 mmol/l (3.5-5.1); SODIUM 140 mmol/l (137-146)
[2022-08-25 06:24] VITALS: BP 103/51
[2022-08-25 19:18] VITALS: BP 118/65
[2022-08-25 23:55] VITALS: BP 125/69
[2022-08-26 04:46] VITALS: BP 110/57
[2022-08-26 06:30] VITALS: BP 118/65
[2022-08-26 11:20] VITALS: BP 128/72
[2022-08-26 15:45] VITALS: BP 153/84
[2022-08-26 18:47] VITALS: BP 138/80
[2022-08-26 23:47] VITALS: BP 143/79
[2022-08-27 04:44] VITALS: BP 120/68
[2022-08-27 05:54] VITALS: BP 125/67
[2022-08-27 10:05] VITALS: BP 124/74
== END 2022-08-27 14:10 | DRG 329 ==
LOC: ED 18:03 → ED-I 22:00 → ED 22:12 → MS2 22:13 → ICU 08-11 18:00 → MS2 08-15 18:40
PROVIDERS: Internal Medicine; Internal Medicine Nephrology; Nurse Practitioner; Nurse Practitioner Family; ADMIT Internal Medicine; ATTEND Internal Medicine
PROC: 0D1N0Z4 Bypass Sigmoid Colon to Cutaneous, Open Approach (ICD-10-PCS; principal; 2022-08-09)
PROC: 0D9N0ZZ Drainage of Sigmoid Colon, Open Approach (ICD-10-PCS; 2022-08-09)
PROC: 0D9 Gastrointestinal System, Drainage (ICD-10-PCS; 2022-08-09)
PROC: 0D9N8ZZ Drainage of Sigmoid Colon, Via Natural or Artificial Opening Endoscopic (ICD-10-PCS; 2022-08-09)
PROC: 0T2BX0Z Change Drainage Device in Bladder, External Approach (ICD-10-PCS; 2022-08-16)
DX: K56.41 Fecal impaction (principal); A41.9 Sepsis, unspecified organism; G82.50 Quadriplegia, unspecified; J69.0 Pneumonitis due to inhalation of food and vomit; J96.01 Acute respiratory failure with hypoxia; T83.510A Infection and inflammatory reaction due to cystostomy catheter, initial encounter; N39.0 Urinary tract infection, site not specified; F84.0 Autistic disorder; G93.1 Anoxic brain damage, not elsewhere classified; R47.01 Aphasia; K56.7 Ileus, unspecified; E87.20 Acidosis, unspecified; K59.89 Other specified functional intestinal disorders; E83.42 Hypomagnesemia; E87.6 Hypokalemia; R35.89 Other polyuria; I95.9 Hypotension, unspecified; D64.9 Anemia, unspecified; B95.61 Methicillin susceptible Staphylococcus aureus infection as the cause of diseases classified elsewhere; B96.89 Other specified bacterial agents as the cause of diseases classified elsewhere; B37.9 Candidiasis, unspecified; Z93.1 Gastrostomy status; Z93.59 Other cystostomy status; Z74.01 Bed confinement status
CPT/HCPCS: J0131; J1650; J2597; J3475; Q9967; S0164

== ENCOUNTER 2023-03-13 17:27 | Inpatient (IN) | payer OTHER ==
[2023-03-13] VITALS (25 sets, daily range): BP systolic 94–121; BP diastolic 60–82
[~2023-03-13] VITALS: Ht 175.3 cm; Wt 74.0 kg
[~2023-03-13 17:27] MED LIST changes: +AUGMENTIN400 MG/5 M PEG
[2023-03-13 18:43] LABS: BASO% 0.2 % (0-3); EOS% 0.1 % (0-8); IMMATURE GRANULOCYTES 0.1 % (0.0-5.0); LYMPH% 11.5 % (15-41); MEAN CELL VOLUME 98.8 fL CALC (80.0-100.0); MEAN CORPUSCULAR HGB 32.3 pG CALC (26.0-32.0); MEAN CORPUSCULAR HGB CONC 32.7 g/dL CAL (32.0-36.0); MONO% 6.9 % (2-13); NEUT# 7.91 thou/uL (2.00-7.15); NEUT% 81.2 % (42-76); RED BLOOD COUNT 4.03 mill/uL (4.20-5.60)
[2023-03-13 18:48] LABS: HEMATOCRIT 39.8 % (37.0-47.0)
[2023-03-13] MEDS ORDERED: ACETAMINOP160 MG/5 M FT (18:54)
[2023-03-13] MEDS ORDERED: [UNRECOGNIZED DRUG - OTHER] FT (18:57)
[2023-03-13] MEDS ORDERED: [UNRECOGNIZED DRUG - OTHER] FT (18:59)
[2023-03-13 19:00] LABS: ALBUMIN 4.3 g/dL (3.2-5.0); ALKALINE PHOSPHATASE 97 u/l (38-126); ANION GAP 13 (6-22 (CALC)); BUN 10 mg/dL (7-17); BUN/CREATININE RATIO 31 (12-20 (CALC)); CARBON DIOXIDE 28 mmol/l (22-30); CHLORIDE 103 mmol/l (95-108); CREATININE 0.3 mg/dL (0.5-1.0); GFR FOR AFR.AMER. > 60 ML/MIN (>=60 (CALC)); GFR OTHER RACES > 60 ML/MIN (>=60 (CALC)); POTASSIUM 3.8 mmol/l (3.5-5.1); SGOT/AST 23 u/l (14-36); SODIUM 140 mmol/l (137-146); TOTAL PROTEIN 8.5 g/dL (6.3-8.2)
[2023-03-13] MEDS ORDERED: DIAZEPAM2 MG FT (19:00)
[2023-03-13] MEDS ORDERED: [UNRECOGNIZED DRUG - OTHER] PO ×2 (19:00→19:03)
[2023-03-13] MEDS ORDERED: PROBIOTI2 (19:01)
[2023-03-13 19:02] LABS: BILIRUBIN, TOTAL 0.2 mg/dL (0.02-1.3)
[2023-03-13 19:24] LABS: URINE BILIRUBIN - DIPSTICK NEGATIVE (NEGATIVE); URINE BLOOD DIPSTICK NEGATIVE (NEGATIVE); URINE COLOR YELLOW; URINE GLUCOSE - DIPSTICK NEGATIVE (NEGATIVE); URINE KETONE NEGATIVE (NEGATIVE); URINE PH 7.5 (4.5-8.0); URINE PROTEIN - DIPSTICK NEGATIVE (NEG-TRACE); URINE SPECIFIC GRAVITY 1.015; URINE UROBILINOGEN - DIPSTICK 0.2 E.U./dL (0.2)
[2023-03-13 19:41] LABS: URINE LEUK ESTERASE MODERATE (NEGATIVE); URINE NITRITE - DIPSTICK NEGATIVE (Negative)
[2023-03-13 19:42] LABS: URINE AMORPH SEDIMENT MANY hpf (NONE-FEW); URINE SQUAMOUS EPITHELIAL CELL FEW EPI/hpf (0-FEW)
[2023-03-14] VITALS (16 sets, daily range): BP systolic 79–131; BP diastolic 44–71
[2023-03-14 05:13] LABS: BASO% 0.2 % (0-3); EOS% 0.9 % (0-8); HEMATOCRIT 38.5 % (37.0-47.0); HEMOGLOBIN 12.4 g/dl (12.0-16.0); LYMPH% 22.8 % (15-41); MEAN CORPUSCULAR HGB 32.2 pG CALC (26.0-32.0); MEAN CORPUSCULAR HGB CONC 32.2 g/dL CAL (32.0-36.0); MONO% 8.4 % (2-13); NEUT# 3.62 thou/uL (2.00-7.15); NEUT% 67.7 % (42-76); RED BLOOD COUNT 3.85 mill/uL (4.20-5.60)
[2023-03-14 05:42] LABS: ALKALINE PHOSPHATASE 93 u/l (38-126); ANION GAP 10 (6-22 (CALC)); BILIRUBIN, TOTAL 0.2 mg/dL (0.02-1.3); BUN 12 mg/dL (7-17); BUN/CREATININE RATIO 39 (12-20 (CALC)); CARBON DIOXIDE 28 mmol/l (22-30); CHLORIDE 103 mmol/l (95-108); CREATININE 0.3 mg/dL (0.5-1.0); GFR FOR AFR.AMER. > 60 ML/MIN (>=60 (CALC)); GFR OTHER RACES > 60 ML/MIN (>=60 (CALC)); MAGNESIUM 1.8 mg/dL (1.6-2.3); POTASSIUM 3.9 mmol/l (3.5-5.1); SGOT/AST 23 u/l (14-36); SODIUM 137 mmol/l (137-146)
[2023-03-15 05:06] VITALS: BP 117/66
[2023-03-15 06:39] LABS: BASO% 0.2 % (0-3); EOS% 1.2 % (0-8); HEMATOCRIT 34.3 % (37.0-47.0); HEMOGLOBIN 11.1 g/dl (12.0-16.0); MEAN CELL VOLUME 101.2 fL CALC (80.0-100.0); MEAN CORPUSCULAR HGB 32.7 pG CALC (26.0-32.0); MEAN CORPUSCULAR HGB CONC 32.4 g/dL CAL (32.0-36.0); NEUT# 3.25 thou/uL (2.00-7.15); NEUT% 67.6 % (42-76); RED BLOOD COUNT 3.39 mill/uL (4.20-5.60)
[2023-03-15 06:43] VITALS: BP 116/67
[2023-03-15 07:01] LABS: ALBUMIN 3.4 g/dL (3.2-5.0); ALKALINE PHOSPHATASE 76 u/l (38-126); ANION GAP 9 (6-22 (CALC)); BUN 14 mg/dL (7-17); BUN/CREATININE RATIO 62 (12-20 (CALC)); CARBON DIOXIDE 26 mmol/l (22-30); CHLORIDE 107 mmol/l (95-108); CREATININE 0.2 mg/dL (0.5-1.0); GFR FOR AFR.AMER. > 60 ML/MIN (>=60 (CALC)); GFR OTHER RACES > 60 ML/MIN (>=60 (CALC)); MAGNESIUM 1.8 mg/dL (1.6-2.3); POTASSIUM 3.9 mmol/l (3.5-5.1); SGOT/AST 22 u/l (14-36); SODIUM 138 mmol/l (137-146)
[2023-03-15 07:07] LABS: BILIRUBIN, TOTAL 0.1 mg/dL (0.02-1.3)
[2023-03-15 19:00] VITALS: BP 121/75
[2023-03-15 19:18] VITALS: BP 121/75
[2023-03-16 05:27] VITALS: BP 113/61
[2023-03-16 06:49] VITALS: BP 102/67
[2023-03-16 08:09] VITALS: BP 94/56
[2023-03-16 15:11] VITALS: BP 119/70
[2023-03-16 20:03] VITALS: BP 129/82
[2023-03-17 04:32] VITALS: BP 102/63
[2023-03-17 06:04] LABS: BASO% 0.2 % (0-3); EOS% 1.1 % (0-8); HEMATOCRIT 35.4 % (37.0-47.0); HEMOGLOBIN 11.3 g/dl (12.0-16.0); LYMPH% 15.3 % (15-41); MEAN CELL VOLUME 100.3 fL CALC (80.0-100.0); MEAN CORPUSCULAR HGB CONC 31.9 g/dL CAL (32.0-36.0); NEUT# 4.05 thou/uL (2.00-7.15); NEUT% 74.4 % (42-76); RED BLOOD COUNT 3.53 mill/uL (4.20-5.60); RED CELL DISTRI WIDTH 12.9 % (11.5-15.5)
[2023-03-17 06:19] LABS: ALBUMIN 3.3 g/dL (3.2-5.0); ALKALINE PHOSPHATASE 90 u/l (38-126); ANION GAP 10 (6-22 (CALC)); BILIRUBIN, TOTAL 0.1 mg/dL (0.02-1.3); BUN 12 mg/dL (7-17); BUN/CREATININE RATIO 59 (12-20 (CALC)); CARBON DIOXIDE 26 mmol/l (22-30); CHLORIDE 106 mmol/l (95-108); CREATININE 0.2 mg/dL (0.5-1.0); GFR FOR AFR.AMER. > 60 ML/MIN (>=60 (CALC)); GFR OTHER RACES > 60 ML/MIN (>=60 (CALC)); POTASSIUM 4.2 mmol/l (3.5-5.1); SGOT/AST 20 u/l (14-36); SODIUM 138 mmol/l (137-146); TOTAL PROTEIN 6.9 g/dL (6.3-8.2)
[2023-03-17 07:32] VITALS: BP 110/67
[2023-03-17 07:33] VITALS: BP 110/67
[2023-03-17 15:21] VITALS: BP 131/87
[2023-03-17 19:19] VITALS: BP 124/66
[2023-03-18 04:20] VITALS: BP 134/90; BP 135/93
[2023-03-18 07:42] VITALS: BP 115/68
[2023-03-18 15:21] VITALS: BP 125/70
[2023-03-18 15:22] VITALS: BP 125/70
[2023-03-18 19:34] VITALS: BP 114/64
[2023-03-19 04:40] VITALS: BP 91/50
[2023-03-19 07:54] VITALS: BP 98/62
[2023-03-19 16:27] VITALS: BP 123/63
[2023-03-19 19:02] VITALS: BP 123/63
[2023-03-20 05:16] VITALS: BP 123/63
[2023-03-20 05:17] LABS: HEMATOCRIT 35.1 % (37.0-47.0); HEMOGLOBIN 11.6 g/dl (12.0-16.0); MEAN CELL VOLUME 99.4 fL CALC (80.0-100.0); MEAN CORPUSCULAR HGB 32.9 pG CALC (26.0-32.0); RED BLOOD COUNT 3.53 mill/uL (4.20-5.60); RED CELL DISTRI WIDTH 12.8 % (11.5-15.5)
[2023-03-20 05:21] VITALS: BP 104/39
[2023-03-20 05:34] LABS: ALBUMIN 3.6 g/dL (3.2-5.0); ALKALINE PHOSPHATASE 92 u/l (38-126); ANION GAP 9 (6-22 (CALC)); BILIRUBIN, TOTAL 0.2 mg/dL (0.02-1.3); BUN 13 mg/dL (7-17); BUN/CREATININE RATIO 48 (12-20 (CALC)); CARBON DIOXIDE 26 mmol/l (22-30); CHLORIDE 106 mmol/l (95-108); CREATININE 0.3 mg/dL (0.5-1.0); GFR FOR AFR.AMER. > 60 ML/MIN (>=60 (CALC)); GFR OTHER RACES > 60 ML/MIN (>=60 (CALC)); MAGNESIUM 1.7 mg/dL (1.6-2.3); POTASSIUM 4.1 mmol/l (3.5-5.1); SGOT/AST 24 u/l (14-36); SODIUM 137 mmol/l (137-146); TOTAL PROTEIN 7.4 g/dL (6.3-8.2)
[2023-03-20 06:50] VITALS: BP 85/53
[2023-03-20 07:40] VITALS: BP 112/69
[2023-03-20 07:47] VITALS: BP 112/69
== END 2023-03-20 13:35 | disposition home health service (06) | DRG 689 ==
LOC: ED 17:27 → MS2 19:15
PROVIDERS: Family Medicine; Internal Medicine; Nurse Practitioner Family; ADMIT Internal Medicine; ATTEND Internal Medicine
DX: N39.0 Urinary tract infection, site not specified (principal); G82.50 Quadriplegia, unspecified; G93.1 Anoxic brain damage, not elsewhere classified; F84.0 Autistic disorder; Z16.12 Extended spectrum beta lactamase (ESBL) resistance; B96.1 Klebsiella pneumoniae [K. pneumoniae] as the cause of diseases classified elsewhere; M62.40 Contracture of muscle, unspecified site; L89.899 Pressure ulcer of other site, unspecified stage; Z74.01 Bed confinement status; Z93.1 Gastrostomy status; Z87.440 Personal history of urinary (tract) infections; Z93.3 Colostomy status; Z93.51 Cutaneous-vesicostomy status

== ENCOUNTER 2024-07-13 14:58 | Inpatient (IN) | payer MEDICAID ==
[~2024-07-13] VITALS: Ht 165.1 cm; Wt 89.8 kg
[~2024-07-13 14:58] MED LIST changes: +ACETAMINOP160 MG/5 M FT; +BACLOFEN10 MG PO; -BACLOFEN10 MG VT; +DIAZEPAM2 MG PEG; +PROBIOTI2; +[UNRECOGNIZED DRUG - OTHER] FT; +[UNRECOGNIZED DRUG - OTHER] FT; +[UNRECOGNIZED DRUG - OTHER] PO
[2024-07-13 15:11] VITALS: BP 106/64
[2024-07-13] MEDS ORDERED: SODIUM CHLORIDE 0.9% 10 ML SYR IV PRN (15:40)
[2024-07-13] MEDS ORDERED: Polyethylene Glycol 3350 17 GM/PKT PO PRN (15:40)
[2024-07-13] MEDS ORDERED: LORazepam 0.5 MG/TAB PO PRN (15:40)
[2024-07-13] MEDS ORDERED: ALUM & MAG HYDROX-SIMETHICONE 30 ML PO PRN (15:40)
[2024-07-13] MEDS ORDERED: ACETAMINOPHEN 325 MG/TAB PO PRN (15:40)
[2024-07-13 15:57] LABS: BASO% 0.2 % (0-3); EOS% 0.3 % (0-8); IMMATURE GRANULOCYTES 0.2 % (0.0-5.0); LYMPH% 16.2 % (15-41); MEAN CELL VOLUME 101.4 fL CALC (80.0-100.0); MEAN CORPUSCULAR HGB 32.8 pG CALC (26.0-32.0); MEAN CORPUSCULAR HGB CONC 32.4 g/dL CAL (32.0-36.0); NEUT# 4.59 thou/uL (2.00-7.15); NEUT% 74.1 % (42-76); RED BLOOD COUNT 4.36 mill/uL (4.20-5.60); RED CELL DISTRI WIDTH 12.9 % (11.5-15.5)
[2024-07-13 16:04] LABS: HEMATOCRIT 44.2 % (37.0-47.0); HEMOGLOBIN 14.3 g/dl (12.0-16.0)
[2024-07-13 16:26] LABS: ALBUMIN 4.4 g/dL (3.2-5.0); BILIRUBIN, TOTAL 0.3 mg/dL (0.02-1.3); CREATININE 0.4 mg/dL (0.5-1.0); POTASSIUM 4.4 mmol/l (3.5-5.1); TOTAL PROTEIN 8.5 g/dL (6.3-8.2)
[2024-07-13] MEDS ORDERED: CEFEPIME HYDROCHLORIDE 2 GM in SODIUM CHLORIDE 0.9% 100 ML IV SCH (17:00)
[2024-07-13 19:22] VITALS: BP 145/83
[2024-07-14] VITALS (7 sets, daily range): BP systolic 107–136; BP diastolic 57–75
[2024-07-14 04:23] LABS: BILIRUBIN, TOTAL 0.4 mg/dL (0.02-1.3); CREATININE 0.3 mg/dL (0.5-1.0); MAGNESIUM 2.1 mg/dL (1.6-2.3); POTASSIUM 4.3 mmol/l (3.5-5.1); TOTAL PROTEIN 7.9 g/dL (6.3-8.2)
[2024-07-14 04:34] LABS: BASO% 0.2 % (0-3); EOS% 0.6 % (0-8); HEMATOCRIT 41.3 % (37.0-47.0); HEMOGLOBIN 13.5 g/dl (12.0-16.0); LYMPH% 21.8 % (15-41); MEAN CELL VOLUME 100.2 fL CALC (80.0-100.0); MEAN CORPUSCULAR HGB 32.8 pG CALC (26.0-32.0); MEAN CORPUSCULAR HGB CONC 32.7 g/dL CAL (32.0-36.0); MONO% 11.4 % (2-13); NEUT# 4.13 thou/uL (2.00-7.15); RED BLOOD COUNT 4.12 mill/uL (4.20-5.60)
[2024-07-14] MEDS ORDERED: BACLOFEN 10 MG/TAB PO SCH (15:00)
[2024-07-14] MEDS ORDERED: diazePAM 5 MG/TAB VT SCH (15:00)
[2024-07-14 19:11] LABS: URINE BILIRUBIN - DIPSTICK Negative (NEGATIVE); URINE BLOOD DIPSTICK Negative (NEGATIVE); URINE COLOR Yellow; URINE GLUCOSE - DIPSTICK Negative (NEGATIVE); URINE KETONE Negative (NEGATIVE); URINE LEUK ESTERASE Moderate (NEGATIVE); URINE NITRITE - DIPSTICK Negative (Negative); URINE PROTEIN - DIPSTICK Negative (NEG-TRACE); URINE UROBILINOGEN - DIPSTICK 0.2 E.U./dL (0.2)
[2024-07-14 19:18] LABS: URINE RBC 0-2 RBC/hpf (0-5)
[2024-07-14 19:20] LABS: URINE BACTERIA FEW hpf
[2024-07-14] MEDS ORDERED: METOPROLOL SUCCINATE 25 MG/TAB-TOPROL XL PO ONE (20:15)
[2024-07-14] MEDS ORDERED: OXYBUTYNIN 5 MG/TAB PO SCH (21:00)
[2024-07-15] VITALS (8 sets, daily range): BP systolic 99–130; BP diastolic 56–68
[2024-07-15 05:02] LABS: BASO% 0.1 % (0-3); EOS% 0.7 % (0-8); HEMOGLOBIN 13.7 g/dl (12.0-16.0); IMMATURE GRANULOCYTES 0.1 % (0.0-5.0); LYMPH% 15.7 % (15-41); MEAN CORPUSCULAR HGB 32.6 pG CALC (26.0-32.0); MEAN CORPUSCULAR HGB CONC 32.6 g/dL CAL (32.0-36.0); MONO% 8.8 % (2-13); NEUT# 4.99 thou/uL (2.00-7.15); NEUT% 74.6 % (42-76); RED BLOOD COUNT 4.2 mill/uL (4.20-5.60); RED CELL DISTRI WIDTH 12.9 % (11.5-15.5)
[2024-07-15 05:20] LABS: ALBUMIN 4.1 g/dL (3.2-5.0); BILIRUBIN, TOTAL 0.5 mg/dL (0.02-1.3); CREATININE 0.3 mg/dL (0.5-1.0); POTASSIUM 4.4 mmol/l (3.5-5.1); TOTAL PROTEIN 8.1 g/dL (6.3-8.2)
[2024-07-16] VITALS (10 sets, daily range): BP systolic 112–142; BP diastolic 55–72
[2024-07-17] VITALS (10 sets, daily range): BP systolic 89–125; BP diastolic 48–82
[2024-07-17 05:33] LABS: BASO% 0.2 % (0-3); EOS% 0.9 % (0-8); HEMATOCRIT 38.1 % (37.0-47.0); HEMOGLOBIN 12.4 g/dl (12.0-16.0); LYMPH% 22.6 % (15-41); MEAN CELL VOLUME 101.1 fL CALC (80.0-100.0); MEAN CORPUSCULAR HGB 32.9 pG CALC (26.0-32.0); MEAN CORPUSCULAR HGB CONC 32.5 g/dL CAL (32.0-36.0); MONO% 10.8 % (2-13); NEUT# 3.47 thou/uL (2.00-7.15); NEUT% 65.5 % (42-76); RED BLOOD COUNT 3.77 mill/uL (4.20-5.60); RED CELL DISTRI WIDTH 12.9 % (11.5-15.5)
[2024-07-17 05:55] LABS: ALBUMIN 3.4 g/dL (3.2-5.0); CREATININE 0.3 mg/dL (0.5-1.0); MAGNESIUM 1.9 mg/dL (1.6-2.3)
[2024-07-17 06:02] LABS: BILIRUBIN, TOTAL 0.2 mg/dL (0.02-1.3)
[2024-07-18 00:07] VITALS: BP 94/52
[2024-07-18 04:49] VITALS: BP 87/49
[2024-07-18 05:23] LABS: BASO% 0.2 % (0-3); EOS% 0.9 % (0-8); HEMATOCRIT 39.2 % (37.0-47.0); HEMOGLOBIN 12.5 g/dl (12.0-16.0); IMMATURE GRANULOCYTES 0.2 % (0.0-5.0); LYMPH% 22.9 % (15-41); MEAN CORPUSCULAR HGB 33.2 pG CALC (26.0-32.0); MEAN CORPUSCULAR HGB CONC 31.9 g/dL CAL (32.0-36.0); MONO% 10.9 % (2-13); NEUT# 3.58 thou/uL (2.00-7.15); NEUT% 64.9 % (42-76); RED BLOOD COUNT 3.77 mill/uL (4.20-5.60); RED CELL DISTRI WIDTH 12.7 % (11.5-15.5)
[2024-07-18 06:16] VITALS: BP 101/62
[2024-07-18 06:20] LABS: ALBUMIN 3.5 g/dL (3.2-5.0); BILIRUBIN, TOTAL 0.2 mg/dL (0.02-1.3); CREATININE 0.3 mg/dL (0.5-1.0); MAGNESIUM 1.9 mg/dL (1.6-2.3); POTASSIUM 4.2 mmol/l (3.5-5.1); TOTAL PROTEIN 7.1 g/dL (6.3-8.2)
[2024-07-18 07:57] VITALS: BP 118/72
[2024-07-18 10:40] VITALS: BP 114/75
[2024-07-18] MEDS ORDERED: CIPROFLOXACIN 250 MG/TAB PO SCH (10:45)
[2024-07-18] MEDS ORDERED: CIPROFLOXACN750 MG VT (11:14)
== END 2024-07-18 13:20 | disposition home or self-care (01) | DRG 698 ==
LOC: MS2 14:58
PROVIDERS: Nurse Practitioner Family; ADMIT Internal Medicine; ATTEND Internal Medicine
DX: T83.510A Infection and inflammatory reaction due to cystostomy catheter, initial encounter (principal); G82.50 Quadriplegia, unspecified; N39.0 Urinary tract infection, site not specified; Z16.24 Resistance to multiple antibiotics; F84.0 Autistic disorder; G93.1 Anoxic brain damage, not elsewhere classified; B96.5 Pseudomonas (aeruginosa) (mallei) (pseudomallei) as the cause of diseases classified elsewhere; Y83.3 Surgical operation with formation of external stoma as the cause of abnormal reaction of the patient, or of later complication, without mention of misadventure at the time of the procedure; Z93.1 Gastrostomy status; Z93.3 Colostomy status
CPT/HCPCS: J0692